=== PATIENT | male | born 1950 | race Hispanic/Latino ===

== ENCOUNTER → 2024-06-25 | Outpatient (CLI) | payer MEDICARE ==
--- NOTE | 2024-07-01 09:42 | HMCSR ---
APPROVED REPORT Laterality: Bilateral Indications R09.89 Doppler Spectral Velocity Analysis PSV / EDVPSV / EDV ECA (R) 193 / cm/sECA (L) 97 / cm/s dICA (R) 80 / 13 cm/sdICA (L) 92 / 21 cm/s Keny (R) 114 / 12 cm/smICA (L) 110 / 46 cm/s pICA (R) 407 / 123 cm/spICA (L) 96 / 32 cm/s dCCA (R) 58 / 12 cm/sdCCA (L) 67 / 13 cm/s mCCA (R) 46 / 6 cm/smCCA (L) 96 / 19 cm/s pCCA (R) 49 / 9 cm/spCCA (L) 94 / 18 cm/s Vert (R) 68 / cm/sVert (L) 35 / cm/s Subl. (R) 234 / cm/sSubl. (L) 182 / cm/s ICA/CCA 7.02ICA/CCA 1.15 Technologist Impression Severe to moderate calcified plaque noted in the right carotid. Bilateral vertebral arteries appear antegrade. CHELLY shows evidence greater than 80% stenosis. LICA appears patent without hemodynamic significance. RECA shows increased velocities. velocities in the Rt. Subclavian artery are suggestive of >50% Stenosis. Conclusion Severe to moderate calcified plaque noted in the right carotid. Bilateral vertebral arteries appear antegrade. CHELLY shows evidence greater than 80% stenosis. LICA appears patent without hemodynamic significance. RECA shows increased velocities. velocities in the Rt. Subclavian artery are suggestive of >50% Stenosis. Conclusion Severe to moderate calcified plaque noted in the right carotid. Bilateral vertebral arteries appear antegrade. CHELLY shows evidence greater than 80% stenosis. LICA appears patent without hemodynamic significance. RECA shows increased velocities. velocities in the Rt. Subclavian artery are suggestive of >50% Stenosis.
== END | disposition home or self-care (01) ==
LOC: SHCH 11:25
PROVIDERS: ATTEND Internal Medicine Cardiovascular Disease
DX: I65.21 Occlusion and stenosis of right carotid artery (principal); R09.89 Other specified symptoms and signs involving the circulatory and respiratory systems
CPT/HCPCS: 93880

== ENCOUNTER → 2024-07-17 | Outpatient (CLI) | payer MEDICARE ==
[~2024-07-17] MED LIST: IOHEXOL 350 MG/ML 100ML INFUS..BTL IV ONE
--- NOTE | 2024-07-17 12:31 | HMCIMG ---
CT ANGIO NECK REASON: OCCLUSION/ STENOSIS COMPARISON: None TECHNIQUE: Axial images are obtained from the aortic arch through the skull base before and during bolus IV contrast, 100 cc Omnipaque 350. 2-D and 3-D reconstruction images were then performed. FINDINGS: Common carotid arteries appear unremarkable to the level of the bifurcation. There is extensive plaque in the right bifurcation. The right internal carotid artery is severely narrowed, 90% or greater. There is a decreased caliber internal carotid artery which extends to the level of the skull base. There is mild plaque in the left bifurcation. There is no anatomic evidence of significant focal narrowing. There is a balanced vertebral artery system, both are patent to the basilar confluence. IMPRESSION: 1. Severe plaque in the right carotid bifurcation, there is severe 90% or greater stenosis of the proximal right internal carotid artery. 2. Mild plaque on the left, no stenosis identified. 3. Balanced vertebral artery system, both are patent to the basilar confluence.
== END | disposition home or self-care (01) ==
LOC: RAH 11:14
PROVIDERS: ATTEND Internal Medicine Cardiovascular Disease
DX: I65.23 Occlusion and stenosis of bilateral carotid arteries (principal)
CPT/HCPCS: 70498; Q9967

== ENCOUNTER → 2024-07-25 | Outpatient (CLI) | payer MEDICARE ==
[2024-07-25] MEDS: REGADENOSON 0.4 MG/5 ML PF SYG IVP ONE (11:16)
--- NOTE | 2024-07-29 13:10 | HMCSR ---
APPROVED REPORT Height: 5 ft 8in Weight: 176 lbs TEST INDICATIONS I71.40 ABNORMAL AORTIC ANEURYSM The imaging protocol used to acquire images was Rest Tc-99m/stress Tc-99m 1 day Consent: The procedure was explained and understood by the patient. Informerd consent was witnessed Jaime SONG RN First, low dose rest was performed then high dose stress. RESTING DATA: The resting ekg shows: NSR Rest SPECT myocardial perfusion imaging was performed in supine position 97 minutes following the int ravenous injection of 11.21 mCi of Tc-99 Sestamibi. Time of rest injection: 08:55: Date: 07/25/2024 Time of rest imagin:32: Date: 07/25/2024 PHARMACOLOGIC STRESS: Pharmacologic stress test was performed by injecting regadenoson 0.4 mg IV push followed by the intra venous injection of 31.5 mCi of Tc-99 Sestamibi. Time of stress injection: 10:56: Date: 07/25/2024 Time of stress imagin:03: Date: 07/25/2024 Heart Rate at time of stress injection: 52 bpm. Gated Stress SPECT was performed 67 minutes after stress injection. The images were gated to evaluate regional wall motion and calculate left ventricular ejection fracti on. STRESS DETAILS Reason for Termination: Infusion complete Stress Symptoms: Dyspnea Max HR Achieved: 80 bpm % of APMHR Achieved: 56 Max Blood Pressure: 114/49 mmHg Stress ECG: NSR LEFT VENTRICLE Size: The left ventricular size is normal. Systolic Function:The left ventricular systolic function is borderline. Wall Motion: Infero-apical hypokinesis. The left ventricular ejection fraction was calculated to be 52%.TID = . LV PERFUSION Fixed infero-apical defects. No reversible defects. Conclusion The left ventricular size is normal. The left ventricular systolic function is borderline. Infero-apical hypokinesis. Fixed infero-apical defects. No reversible defects. The left ventricular ejection fraction was calculated to be 52%.
== END | disposition home or self-care (01) ==
LOC: SHCH 08:39
PROVIDERS: ATTEND Internal Medicine Cardiovascular Disease
DX: R06.00 Dyspnea, unspecified (principal); I71.40 Abdominal aortic aneurysm, without rupture, unspecified; R10.9 Unspecified abdominal pain; I10 Essential (primary) hypertension; Z79.899 Other long term (current) drug therapy
CPT/HCPCS: 78452; 93017; J2785; A9500 ×2

== ENCOUNTER 2024-08-05 06:45 | Day surgery (SDC) | payer MEDICARE ==
[2024-08-02 11:57] LABS: BASOPHILS # (AUTO) 0.03 K/uL (0.00-0.20); BASOPHILS % (AUTO) 0.5 % (0.0-5.0); EOSINOPHILS % (AUTO) 1.8 % (0.0-8.0); HEMATOCRIT 34.2 % (42-54); IMMATURE GRANULOCYTE ABSOLUTE 0.04 K/uL (0-1); LYMPHOCYTES # (AUTO) 0.9 K/uL (1.0-4.8); LYMPHOCYTES % (AUTO) 15.3 % (21.0-51.0); MEAN CORPUSCULAR HEMOGLOBIN 26.7 pg (27.0-33.0); MEAN CORPUSCULAR HGB CONC 31.9 g/dL (32.0-36.0); MEAN CORPUSCULAR VOLUME 83.6 fL (79-99); MONOCYTES # (AUTO) 0.4 K/uL (0.1-1.0); MONOCYTES % (AUTO) 7.3 % (3.0-13.0); NEUTROPHILS # (AUTO) 4.2 K/uL (1.8-7.7); NEUTROPHILS % (AUTO) 74.4 % (40.0-77.0); PLATELET COUNT (AUTO) 253 K/uL (130-400); RED BLOOD CELL COUNT(AUTO) 4.09 MIL/uL (4.50-6.20); RED CELL DISTRIBUTION WIDTH 15.9 % (11.0-15.5); WHITE BLOOD COUNT (AUTO) 5.6 K/uL (4.8-10.8)
--- NOTE | 2024-08-02 11:57 | EKG ---
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
[2024-08-02 12:01] VITALS: BP 140/62; PULSE 64; RESP 16; TEMP 97.3
[2024-08-02 12:01] LABS: APPEARANCE,URINE CLOUDY (CLEAR); BILIRUBIN,URINE NEGATIVE (NEGATIVE); COLOR,URINE YELLOW (YELLOW); GLUCOSE, URINE (UA) NEGATIVE (NEGATIVE); KETONES,URINE NEGATIVE (NEGATIVE); LEUKOCYTE ESTERASE ,URINE NEGATIVE Leu/uL (NEGATIVE); NITRATE,URINE NEGATIVE (NEGATIVE); OCCULT BLOOD,URINE NEGATIVE (NEGATIVE); PROTEIN,URINE NEGATIVE (NEGATIVE); UROBILINOGEN,URINE 0.2 mg/dL (0.2-1.0)
[2024-08-02 12:02] LABS: ADD UA MICROSCOPIC YES
[2024-08-02 12:04] LABS: BACTERIA,URINE RARE /HPF (None Seen); MUCUS,URINE RARE LPF (None Seen); RBC,URINE 0-1 /HPF (0-1)
[2024-08-02 12:08] LABS: INR 1.03 (0.85-1.15); PROTHROMBIN TIME 10.9 SEC (9.6-11.6)
[2024-08-02 12:09] LABS: CREATININE 0.5 mg/dL (0.5-1.3); PARTIAL THROMBOPLASTIN TIME 28.8 SEC (26.3-35.5); POTASSIUM 3.5 mmol/L (3.5-5.1)
--- NOTE | 2024-08-02 12:46 | HMCIMG ---
PORTABLE CHEST RADIOGRAPH INDICATION: PREOP COMPARISON: None FINDINGS: Heart size is normal. Mild calcific plaque is present along the aortic arch green. The pulmonary vascularity and brook appear normal. No abnormal pulmonary parenchymal opacity or consolidation identified. No significant pleural effusion noted. No pneumothorax detected. IMPRESSION: No radiographic evidence for any acute cardiopulmonary process.
[2024-08-02 12:53] LABS: B-TYPE NATRIURETIC PEPTIDE 48 pg/mL (0-100)
--- NOTE | 2024-08-02 15:32 | NUR ---
REPORT REPORTED NA, CHLORIDE AND H&H TO GIAN GRIFFITH NP. OK TO PROCEED
[~2024-08-05] VITALS: Ht 182.9 cm; Wt 81.2 kg
[2024-08-05] VITALS (11 sets, daily range): BP systolic 95–137; BP diastolic 47–63; PULSE 54–65; RESP 14–16; TEMP 97–206.6
[~2024-08-05 06:45] MED LIST changes: +AMLO-257 PO; +CLOP75TA32 PO; +CYAN-52 PO; -IOHEXOL 350 MG/ML 100ML INFUS..BTL IV ONE; +LISI20TA24 PO; +VITAD50000 PO; +ZINC220T4 PO; +ZOLP10TA2 PO
[2024-08-05] MEDS ORDERED: HEParin 10,000 UNIT/10ML (1,000 UNIT/ML) VIAL ONE (08:44)
[2024-08-05] MEDS ORDERED: IOHEXOL 350 MG/ML 100ML INFUS..BTL IV ONE (08:44)
[2024-08-05] MEDS ORDERED: LIDOCAINE HCL 400MG/20ML VIAL ONE (08:44)
[2024-08-05] MEDS ORDERED: SODIUM BICARB 50MEQ 50ML VIAL 50 ML ONE (08:44)
[2024-08-05] MEDS ORDERED: MIDAZOLAM HCL 1 MG/ML 2ML VIAL ONE ×2 (08:44→10:08)
[2024-08-05] MEDS ORDERED: NITROGLYCERIN 50MG VIAL ONE (08:45)
[2024-08-05] MEDS ORDERED: HEParin-NS 1,000 UNIT/500 ML 1,000 ML IV ONE (08:45)
[2024-08-05] MEDS ORDERED: FENTanyl CITRate PF 50 MCG/1 ML 2ML VIAL ONE (09:25)
[2024-08-05] MEDS ORDERED: IOHEXOL-350 50ML VIAL IV ONE (09:59)
[2024-08-05] MEDS ORDERED: 0.9%NACL 1000ML 1,000 ML IV SCH (10:30)
--- NOTE | 2024-08-05 11:14 | CCATH ---
PROCEDURES: * Left heart catheterization. * Selective right and left coronary arteriogram. * Selective right and left carotid angiogram. * Placement of a catheter in the abdominal aorta. * Abdominal aortogram. * Conscious sedation for 60 minutes. INDICATIONS: * History of coronary artery disease. * Critical carotid artery stenosis. * Abdominal aortic aneurysm, saccular. COMPLICATIONS: None. TOTAL CONTRAST: 100 mL. Ventriculography was deferred to preserve contrast. The patient will have a 2D echocardiogram. DESCRIPTION OF PROCEDURE: The patient was taken to the cardiac catheterization lab after the appropriate operative consents were signed. After conscious sedation was administered, the right common femoral artery region was accessed, was infiltrated with 2% Xylocaine. Right common femoral artery was accessed and a 0.035 wire was advanced in retrograde fashion. We had significant problems advancing the wire because of iliac occlusion and stenosis, we were then able to utilize a Glidewire that allowed us to advance the wire into the descending thoracic aorta. We then exchanged with a 6 x 45 sheath that was placed into the descending thoracic aorta, bypassing all the areas of stenosis. At this point, fluoroscopy revealed a heavily calcified abdominal aorta with a saccular abdominal aortic aneurysm extending towards the right side of the body. The patient had heavily calcified iliac arteries. We were then able to advance FL4 6-[place] catheter, which was selectively engaged in the ostium of the left main. The left main was imaged in multiplane. This was a calcified vessel that was moderately sized and had 30% distal tapering. It bifurcated into an LAD and circumflex. LAD was a large vessel that was calcified and had a 50% mid to distal lesion. It gave rise to several diagonals. The first diagonal was a large vessel that had 20% stenotic lesion. Circumflex was a moderately sized vessel that gives rise to 2 small OMs and an ongoing distal circumflex with a moderately sized OM and system was free of disease, but was calcified. The right coronary artery was a large vessel that was calcified and gave rise to an acute marginal branch PDA and three other PLVB branches. The PDA was a small vessel that had a 90% lesion in its mid body. The rest of the vessels were normal and the PLVB was a larger vessel. The catheter was then withdrawn and placed in the left ventricular cavity. Left ventricular end-diastolic pressure measurement was obtained. Ventriculography was deferred to conserve contrast. Pullback revealed no evidence of aortic stenosis. The right coronary catheter was then selectively engaged in the right common carotid artery. This was imaged in multiplane. This revealed heavily calcified lesion in the ostium of the right internal carotid artery with slow antegrade flow suggestive of a string sign almost. The catheter was then engaged in the left common carotid artery which was patent and large and normal. There was evidence of intracerebral flow from the left carotid system and the right carotid system with the right anterior and middle cerebral arteries being filled via left to right collaterals confirming the critical nature of the right internal carotid artery stenotic lesion. At this point, the catheter was withdrawn and a pigtail Omniflush catheter with markers was advanced to position into the abdominal aorta above the level of the renal arteries. An abdominal aortogram was performed in AP projection with digital acquisition. This identified two right renal arteries and normal left renal artery. The aorta was heavily calcified and there was evidence of a saccular aneurysm that had mural thrombus extending to the right side of the aorta. The common iliac arteries were ectatic and heavily calcified. Both of them had 80% stenotic lesions. The patient had patent internal and external iliac arteries and the femorals were calcified. At this point, the procedure was completed. Vascade was utilized with good hemostasis. The patient tolerated the procedure well and left the cardiac catheterization lab in stable condition. FINAL IMPRESSION: * Branch coronary artery disease with a mid to distal LAD 50% stenotic lesion. * Critical right internal carotid artery stenosis. * Saccular calcified infrarenal abdominal aortic aneurysm with bilateral severe common iliac artery stenoses. PLAN: We will have to stage the procedure on this patient. I think the most appropriate approach is to address the right carotid lesion since it is critical. The patient will then be managed with endoluminal graft placement in the infrarenal abdominal aorta with bilateral common iliac artery angioplasty. The patient may require surgical cutdown given the degree of calcification is iliac artery; however, we will proceed with an attempted percutaneous management. TID: [id number] RECEIPT: [id number]
--- NOTE | 2024-08-05 13:22 | NUR ---
REPORT GIVEN TO JASON NAVA
--- NOTE | 2024-08-05 21:31 | HMCSR ---
APPROVED REPORT EXAM: Limited two-dimensional echocardiogram INDICATION ICD: Assess Left ventricular function Left Ventricle Left ventricular cavity size is normal. Mild apical and apical septal hypokinesia suggested in some p rojections. There is normal left ventricular wall thickness. Mildly thickened Sigmoid septum is prese nt. LVEF is 55-60%. Right Ventricle The right ventricle is normal size. The right ventricular systolic function is normal. Atria The left atrium size is normal. The right atrium is mildly dilated. Aortic Valve Nodular thickening of aortic leaflets, cannot exclude presence of TAVR on difficult imaging. Mitral Valve Mitral valve leaflets open well. Mild posterior annular calcification noted. Tricuspid Valve The tricuspid valve is normal in structure and function. Pulmonic Valve Pulmonic valve is not assessed. Great Vessels The aortic root is normal appears normal in size. Pericardium No pericardial effusion. Other Information Quality : Adequate Conclusion LVEF is 55-60%. Mild apical and apical septal hypokinesia suggested in some projections. Nodular thickening of aortic leaflets, cannot exclude presence of TAVR on difficult imaging.
== END 2024-08-05 16:14 | disposition home or self-care (01) ==
LOC: DAH 06:45 → EDSTATUS 09:00 → DAH 16:14
PROVIDERS: ATTEND Internal Medicine Cardiovascular Disease
DX: I25.10 Atherosclerotic heart disease of native coronary artery without angina pectoris (principal); I65.21 Occlusion and stenosis of right carotid artery; I71.43 Infrarenal abdominal aortic aneurysm, without rupture; I25.84 Coronary atherosclerosis due to calcified coronary lesion; I10 Essential (primary) hypertension; I73.9 Peripheral vascular disease, unspecified; E78.5 Hyperlipidemia, unspecified; E66.9 Obesity, unspecified; I74.5 Embolism and thrombosis of iliac artery; Z79.899 Other long term (current) drug therapy; Z98.890 Other specified postprocedural states; Z88.8 Allergy status to other drugs, medicaments and biological substances; Z87.891 Personal history of nicotine dependence; Z98.49 Cataract extraction status, unspecified eye; Z68.25 Body mass index [BMI] 25.0-25.9, adult
CPT/HCPCS: 80048; 83880; 85025; 85610; 85730; 81001; 36415; 71045; 93005; 93458; 75625; 75716; 36223; 93308; Q9965; C1769; C1894; C1893; C1760; J3010; J3490 ×3; J2250 ×2; J1644; Q9967; A4215; A4222; A4221; A4663; A4216; A4606; A4223 ×3; 96360; 96361; 99156; 99157

== ENCOUNTER → 2024-09-27 | Outpatient (CLI) | payer MEDICARE ==
[~2024-09-27] VITALS: Ht 182.9 cm; Wt 79.9 kg
[~2024-09-27] MED LIST changes: +ASPI-1005 PO; +ATOR40TA71 PO; +FERS325 PO; +METO25TA6 PO; +ZOLP-685 PO; -ZOLP10TA2 PO
--- NOTE | 2024-09-27 08:29 | EKG ---
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 : 1950 Requested By: Micah SOUZA Order Number: [id number] Reading MD: Krzysztof De La Torre Measurements Intervals [place] Rate: 54 P: 28 MS: 278 QRS: 110 QRSD: 134 T: 31 QT: 476 QTc: 451 Interpretive Statements Sinus bradycardia with 1st degree AV block Possible Left atrial enlargement Nonspecific intraventricular block Compared to ECG 08/09/2024 10:21:13 Sinus rhythm no longer present Intraventricular conduction delay no longer present Left ventricular hypertrophy no longer present Electronically Signed On 09-27-2024 15:52:12 CDT by Krzysztof De La Torre Please click the below link to view image of tracing.
[2024-09-27 08:48] LABS: BASOPHILS # (AUTO) 0.04 K/uL (0.00-0.20); BASOPHILS % (AUTO) 0.9 % (0.0-5.0); EOSINOPHILS # (AUTO) 0.16 K/uL (0.00-0.70); EOSINOPHILS % (AUTO) 3.6 % (0.0-8.0); HEMATOCRIT 32.5 % (42-54); IMMATURE GRANULOCYTE ABSOLUTE 0.03 K/uL (0-1); LYMPHOCYTES # (AUTO) 1.1 K/uL (1.0-4.8); LYMPHOCYTES % (AUTO) 24.5 % (21.0-51.0); MEAN CORPUSCULAR HEMOGLOBIN 25.1 pg (27.0-33.0); MEAN CORPUSCULAR HGB CONC 31.4 g/dL (32.0-36.0); MONOCYTES # (AUTO) 0.5 K/uL (0.1-1.0); MONOCYTES % (AUTO) 10.9 % (3.0-13.0); NEUTROPHILS # (AUTO) 2.6 K/uL (1.8-7.7); NEUTROPHILS % (AUTO) 59.4 % (40.0-77.0); PLATELET COUNT (AUTO) 265 K/uL (130-400); RED BLOOD CELL COUNT(AUTO) 4.06 MIL/uL (4.50-6.20); RED CELL DISTRIBUTION WIDTH 17.2 % (11.0-15.5); WHITE BLOOD COUNT (AUTO) 4.4 K/uL (4.8-10.8)
[2024-09-27 08:52] LABS: APPEARANCE,URINE CLEAR (CLEAR); BILIRUBIN,URINE NEGATIVE (NEGATIVE); COLOR,URINE LIGHT-YELLOW (YELLOW); GLUCOSE, URINE (UA) NEGATIVE (NEGATIVE); KETONES,URINE NEGATIVE (NEGATIVE); LEUKOCYTE ESTERASE ,URINE NEGATIVE Leu/uL (NEGATIVE); NITRATE,URINE NEGATIVE (NEGATIVE); OCCULT BLOOD,URINE NEGATIVE (NEGATIVE); PROTEIN,URINE NEGATIVE (NEGATIVE); UROBILINOGEN,URINE 0.2 mg/dL (0.2-1.0)
[2024-09-27 08:54] LABS: ADD UA MICROSCOPIC NO
[2024-09-27 08:56] LABS: CREATININE 0.6 mg/dL (0.5-1.3); POTASSIUM 3.6 mmol/L (3.5-5.1)
[2024-09-27 08:58] LABS: INR 1.03 (0.85-1.15); PROTHROMBIN TIME 10.9 SEC (9.6-11.6)
[2024-09-27 09:05] VITALS: BP 153/79; PULSE 65; RESP 16; TEMP 97.2
--- NOTE | 2024-09-27 09:24 | HMCIMG ---
CHEST 1VW HISTORY: Preop COMPARISON: 08/09/2024 FINDINGS: A frontal projection of the chest was obtained. No acute pulmonary infiltrates is seen. The heart is normal in size. Degenerative changes are seen aortic calcifications are seen. IMPRESSION: 1. No acute pulmonary infiltrate is seen.
--- NOTE | 2024-09-27 11:54 | NUR ---
REPORT REPORTED CBC AND BMP TO GIAN GRIFFITH NP. OK TO PROCEED
== END | disposition home or self-care (01) ==
LOC: DAH 07:54 → EDSTATUS 09-30 08:00
PROVIDERS: ATTEND Internal Medicine Cardiovascular Disease
DX: Z01.818 Encounter for other preprocedural examination (principal); I44.0 Atrioventricular block, first degree; R00.1 Bradycardia, unspecified; I72.3 Aneurysm of iliac artery; I70.0 Atherosclerosis of aorta; M47.814 Spondylosis without myelopathy or radiculopathy, thoracic region
CPT/HCPCS: 36415; 71045; 80048; 81003; 85025; 85610; 85730; 86850; 86900; 86901; 86923; 93005

== ENCOUNTER 2024-09-29 19:29 | Inpatient (IN) | payer MEDICARE ==
[2024-09-29] VITALS (8 sets, daily range): BP systolic 110–143; BP diastolic 50–81; PULSE 76–85; RESP 13–20; TEMP 98.3–98.6; O2SAT 96
[~2024-09-29] VITALS: Ht 182.9 cm; Wt 83.6 kg
[~2024-09-29 19:29] MED LIST changes: -ASPI-1005 PO; -ATOR40TA71 PO; -FERS325 PO; -METO25TA6 PO
[2024-09-29] MEDS ORDERED: IpraTROPium 0.5 MG/2.5 ML INH IH PRN (21:00)
[2024-09-29] MEDS ORDERED: acetaMINOPHEN 650 MG SUPPOSITORY RC PRN (21:00)
[2024-09-29] MEDS ORDERED: doCUSate SODIUM 100 MG CAP PO PRN (21:00)
[2024-09-29] MEDS ORDERED: ondanSETRON 4MG INJ IVP PRN (21:00)
[2024-09-29] MEDS ORDERED: LAbetaLOL 20MG SYG IV PRN (21:00)
--- NOTE | 2024-09-29 21:14 | HP ---
[facility] HISTORY AND PHYSICAL Date of Service: September 29, 2024 Time of Service: 21:14 Admitting/supervising physicians: Dr. Obey Chang and Dr. Bhakta HISTORY OF PRESENT ILLNESS: Mr. Smalls is a 74-year-old male was transferred from [facility] and direct admitted to [facility] by Dr. Chu, Cardiology with the diagnosis of syncope and AAA. The plan for the transfer is AAA repair tomorrow at [facility] where the Cardiothoracic surgeon and his senior national account manager are located. The patient has a history of HTN, hyperlipoproteinemia, infrarenal abdominal aortic aneurysm measuring 5.3 cm (AAA dx since [address] Johnson f/u on it, per patient), CAD s/p cardiac stents, normal LV systolic function by cardiac catheterization on January 2024, history of heavy alcoholism and tobacco use (stopped in 2011), history of PVD, severe right internal carotid artery stenosis (90% or greater stenosis) as per neck CT on May 2024. The patient underwent right carotid stent angiography and right subclavian artery exposure and closure procedure (right TCA ER and shockwave vascular lithotripsy) on 08/13/2024 for stenosis. Per [facility] chart review: The patient was taken to [facility] ER by EMS for evaluation of accidental fall with syncope that happened prior to arrival. The patient reported he was sitting down at a local restaurant when he got up and reported falling to the ground. The patient was assisted to the ground and denied any complaints of headache or neck trauma. The patient reported he felt dizzy after falling down. Patient was noted to have a low blood pressure by EMS and was given 500 mL bolus of saline. The patient denied abdominal pain and chest pain on arrival to ED patient was re ported to be unresponsive for a few seconds as per EMS. The patient reported right elbow pain s/p the fall. CTs done at [facility]: CTA abdomen and pelvis with contrast: 1. Saccular infrarenal abdominal aortic aneurysm measuring up to 5.1 x 5.1 cm in cross-sectional diameter and about 4.8 cm in length. There is prominent mural thrombus noted. No leakage or rupture is identified. 2. The thoracic and abdominal aorta is tortuous and calcified. 3. Vascular calcifications involving the origins of the celiac trunk, SMA and renal arteries without evidence of severe stenosis. 4. Extensive vascular nadia cifications throughout the iliac and femoral arteries. 5. Bilateral basilar dense atelectasis. 6. Coronary artery disease and cardiomegaly. 7. The left lateral upper abdominal and lower chest wall demonstrates a 7.[address] angio chest: Arthrosclerotic calcification of the thoracic aorta without aneurysmal dilatation or dissection. New 2. Cardiomegaly and CAD. 3. Mild upper mediastinal lymphadenopathy. 4. Extensive interstitial infiltrates throughout both lungs with superimposed pulmonary fibrosis and sensory labetalol emphysema. No dense consult cessation is identified. 5. There is thoracic spondylosis. CT brain without contrast: No acute intracranial abnormalities. Generalized atrophy with chronic periventricular deep white matter ischemic changes. EKG: Sinus rhythm, heart rate 61, prolonged [place] interval, probable left atrial enlargement, left BBB. Per chart review the patient was admitted on 08/13/2024 at [facility] s/p right carotid stent angiogram and right subclavian artery exposure and closure procedure [right TCAR and shockwave vascular lithotripsy] today for stenosis. The patient was discharged on 08/15/2024 by the [facility] team. The patient was assessed by me in room 215 upon arrival to [facility]. The patient was sitting in recliner, breathing was even, unlabored, in no distress. Patient re questing pain medication for bilateral lower extremity and elbow pain. Patient already requesting sleeping medication. I informed the patient of plan of care. The patient verbalized understanding and is in agreement with the plan. Plan and assessment are listed below. REVIEW OF SYSTEMS 12-point ROS reviewed with the patient. All pertinent positives mentioned above. Otherwise negative, noncontributory, non-pertinent. PAST MEDICAL HISTORY: As mentioned above PAST SURGICAL HISTORY: Cataract, cosmetic blepharoplasty PAST SOCIAL HISTORY: History of alcohol and tobacco use [stopped in 2011] Coded Allergies: No Known Drug Allergies (Unverified Allergy, Unknown, 08/02/24) PHYSICAL EXAM GENERAL APPEARANCE: The patient is awake, alert, and oriented, in no acute cardiopulmonary distress. NEUROLOGICAL: Cranial nerves II-XII grossly intact. Motor is 5/5 in bilateral upper and lower extremities proximal to distal. No sensory deficits. HEENT: Face is symmetric. Pupils are equal and reactive. Extraocular movements are intact. NECK: Supple. No JVD. No thyromegaly. No submental, submandibular, pre- /postauricular, occipital or supraclavicular lymphadenopathy. CHEST: Normal chest expansion. No Telemetry. LUNGS: Absence of any rales, rhonchi or any wheezing. CARDIOVASCULAR: Regular. S1 and S2 normal. No appreciable rubs, murmurs or gallops. ABDOMEN: Soft, nontender, and nondistended. There is no rebound, voluntary guarding, or rigidity. : Deferred. No Arango. EXTREMITIES: Non-edematous and not cyanotic. No clubbing. Good capillary refill. SKIN: No skin breakdown. LABS: Current Medications Medications (Trade) Dose Ordered Sig/Linda Route PRN Reason Start Time Stop Time Status Last Admin Dose Admin Acetaminophen (TYLenol 325MG TAB) 650 mg Q6H PRN PO FEVER/MILD PAIN LEVEL 1-3 09/29/24 21:00 10/29/24 20:59 Acetaminophen (TYLenol 650MG SUPPOSITORY) 650 mg Q6H PRN RC FEVER / MILD PAIN 1-3 IF NPO 09/29/24 21:00 10/29/24 20:59 Docusate Sodium (COLace 100MG CAP) 100 mg BID PRN PO c 09/29/24 21:00 10/29/24 20:59 Ipratropium Hopkins (AtrovENT UD) 0.5 mg [id number] PRN IH SHORTNESS OF BREATH/WHEEZING 09/29/24 21:00 10/29/24 20:59 Labetalol HCl (TRANdate 20MG SYG) 10 mg Q2H PRN IV SBP GREATER THAN 160 09/29/24 21:00 10/29/24 20:59 Lactulose (Constulose 20gm/ 30ml Udcup) 20 gm Q6H PRN PO CONSTIPATION 09/29/24 21:00 10/29/24 20:59 Ondansetron HCl (zoFRAN 4MG INJ) 4 mg Q6H PRN IVP NAUSEA/VOMITING 09/29/24 21:00 10/29/24 20:59 DIAGNOSTICS / RADIOLOGY: [ ] ASSESSMENT: Syncope episode, POA Hypotensive & bradycardia episode, POA Saccular infrarenal abdominal aortic aneurysm measuring up to 5.1 x 5.1 cm in cross-sectional diameter and about 4.8 cm in length, per CT on 09/29/2024 HX of Infrarenal abdominal aortic aneurysm measuring 5.3 cm, per cardiology report on 08/05/24 HX of AAA dx since [address] Johnson f/u on it, per patient Severe right internal carotid artery stenosis [90% or greater stenosis] as per neck CTA on May 2024 s/p right TCAR and shockwave vascular lithotripsy on 08/13/2024 Prominent mural thrombus, per CT on 09/29/2024. Thoracic and abdominal aorta is tortuous and calcified, per CT 09/29/2024 Vascular calcifications involving the origins of the celiac trunk, SMA and renal arteries without evidence of severe stenosis, per CT 09/29/2024 Extensive vascular calcifications throughout the iliac and femoral arteries, per CT 09/29/2024 Bilateral basilar dense atelectasis, per CT on 09/29/2024 Coronary artery disease and cardiomegaly. 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 Arthrosclerotic calcification of the thoracic aorta without aneurysmal dilatation or dissection, per CT 09/29/2024 Mild upper mediastinal lymphadenopathy, per CT 09/29/2024 Extensive interstitial infiltrates throughout both lungs with superimposed pulmonary fibrosis and sensory labetalol emphysema, per CT 09/29/2024 Thoracic spondylosis. Anemia of chronic disease, POA Electrolyte derangement (hyponatremia, hypokalemia, hypochloremia, hypomag nesemia) Chronic hyponatremia, POA Chronic problem list: Hypertension, Hyperlipoproteinemia History of nonobstructive CAD, as per cardiac catheterization on January 2024 History of heavy alcohol and tobacco use (quit in 2011) History of peripheral vascular disease with left lower extremity intervention on March 2023 History of statin intolerance Chronic Bradycardia Plan: -Patient was transferred from [facility] to [facility] and directly bed into ICU 215 with continuous cardiac monitoring and pulse oximetry monitoring. -Cardiology was consulted by RN on patient arrival to ICU who will see patient in the a.m.. -CV surgeon consult in am. -NPO after midnight. -Continue amlodipine, hydralazine, and Ambien as ordered by Dr. Chu, senior national account manager. -p.r.n. medications for: Pain management, nausea, vomiting, constipation. -Obtain carotid Doppler. -Troponin levels and EKG series. -Oxygen supplement as needed to maintain oxygen levels equal to or greater than 92% -Vital signs per ICU. -Reconcile home medications once available. -Glucometer checks q.6 hours with insulin regular sliding scale. -AM labs: CBC, BNP, Mag, phos, TSH, A1c. -Monitor renal and liver function. -Monitor electrolytes and treat accordingly. -DVT and GI prophylaxis: SCDs and Protonix. ADVANCED CARE PLANNING 1. Which of the following were discussed? Hospice Care - No Therapeutic options - Yes Advance Directives - Yes Other discussions - 2. Discussed with who? The patient 3. Voluntary nature of this service was explained to the patient? Yes 4. Amount of time spent - __ Over 35 minutes 5. Reviewed by Physician? (if this service was performed by NPP) Yes ATTESTATION BY PHYSICIAN I have seen and examined the patient. I reviewed the documentation, medical decision making, and treatment plan as noted by the mid-level provider above. I agree with the findings and plan of care. [facility] September 29, 2024 21:14
[2024-09-29] MEDS ORDERED: hydrALAZine 20MG/ML VIAL IV PRN (21:30)
[2024-09-29] MEDS: acetaMINOPHEN 325 MG TAB PO PRN (21:35)
[2024-09-29 21:37] LABS: HEMATOCRIT 31.2 % (42-54); MEAN CORPUSCULAR HEMOGLOBIN 25.3 pg (27.0-33.0); MEAN CORPUSCULAR HGB CONC 32.1 g/dL (32.0-36.0); MEAN CORPUSCULAR VOLUME 78.8 fL (79-99); RED BLOOD CELL COUNT(AUTO) 3.96 MIL/uL (4.50-6.20); RED CELL DISTRIBUTION WIDTH 17.2 % (11.0-15.5); WHITE BLOOD COUNT (AUTO) 6.6 K/uL (4.8-10.8)
[2024-09-29 21:50] LABS: CREATININE 0.7 mg/dL (0.5-1.3); POTASSIUM 3.2 mmol/L (3.5-5.1)
[2024-09-29 21:54] LABS: ALBUMIN 3.6 g/dL (3.5-5.0); BILIRUBIN,TOTAL 0.2 mg/dL (0.2-1.0); MAGNESIUM 1.7 mg/dL (1.80-2.40)
[2024-09-29] MEDS ORDERED: PoTASSium chl 10% ELIXIR 20MEQ 20 MEQ/15 ML UDCUP PO PRN (22:00)
[2024-09-29] MEDS ORDERED: PoTASSium chloRIDE 10MEQ/100ML 100 ML IV PRN (22:00)
[2024-09-29] MEDS: MAGNESIUM 2GM PREMIX 50ML 50 ML IV PRN (22:05)
[2024-09-29] MEDS: PoTASSium chloRIDE 20MEQ ER 20 MEQ ERTAB PO PRN (22:05)
[2024-09-29] MEDS: PoTASSium chloRIDE 20MEQ ER 20 MEQ ERTAB PO ONE (22:19)
[2024-09-29] MEDS: MAGNESIUM 2GM PREMIX 50ML 50 ML IV ONE (22:19)
[2024-09-29] MEDS ORDERED: PoTASSium chloRIDE 20MEQ/100ML 100 ML IV PRN (22:30)
[2024-09-29] MEDS ORDERED: DEXTROSE 50%-WATER 50 ML DISP.SYRIN IV PRN (22:30)
[2024-09-29] MEDS ORDERED: GLUCAGON 1MG KIT 1 MG ML IM PRN (22:30)
[2024-09-29] MEDS ORDERED: GABApentin 100 MG CAPSULE PO SCH (22:30)
[2024-09-29] MEDS ORDERED: MAGNESIUM 2GM PREMIX 50ML 50 ML IV PRN (22:30)
[2024-09-29] MEDS ORDERED: FAMOTIDINE 20MG VIAL IV ONE ×2 (22:45→23:40)
[2024-09-29] MEDS: FAMOTIDINE 20MG VIAL IV SCH (23:00)
[2024-09-29] MEDS: GABApentin 100 MG CAPSULE PO ONE (23:00)
[2024-09-29] MEDS ORDERED: GABApentin 100 MG CAPSULE PO STA (23:35)
[2024-09-30] VITALS (100 sets, daily range): BP systolic 94–190; BP diastolic 32–80; PULSE 52–97; RESP 10–21; TEMP 98.2–99.5; O2SAT 95–98
[2024-09-30 00:39] LABS: SARS-CoV-2, RNA, NAAT NEGATIVE SARS CoV-2 (NEGATIVE)
[2024-09-30 00:47] LABS: INFLUENZA TYPE A Negative For Type A (NEGATIVE); INFLUENZA TYPE B Negative For Type B (NEGATIVE)
[2024-09-30] MEDS ORDERED: GABApentin 100 MG CAPSULE PO STA (01:04)
[2024-09-30] MEDS ORDERED: FAMOTIDINE 20MG VIAL IV ONE (01:30)
[2024-09-30 03:51] LABS: ADD UA MICROSCOPIC YES; APPEARANCE,URINE CLOUDY (CLEAR); BILIRUBIN,URINE NEGATIVE (NEGATIVE); COLOR,URINE LIGHT-YELLOW (YELLOW); GLUCOSE, URINE (UA) NEGATIVE (NEGATIVE); KETONES,URINE NEGATIVE (NEGATIVE); LEUKOCYTE ESTERASE ,URINE NEGATIVE Leu/uL (NEGATIVE); NITRATE,URINE NEGATIVE (NEGATIVE); OCCULT BLOOD,URINE NEGATIVE (NEGATIVE); PROTEIN,URINE NEGATIVE (NEGATIVE); UROBILINOGEN,URINE 0.2 mg/dL (0.2-1.0)
[2024-09-30 03:54] LABS: MUCUS,URINE RARE LPF (None Seen)
[2024-09-30 03:56] LABS: AMPHET/METH SCREEN,URINE NEGATIVE (NEGATIVE); BARBITURATE SCREEN, URINE NEGATIVE (NEGATIVE); BENZODIAZEPINES SCREEN,URINE NEGATIVE (NEGATIVE); CANNABINOID SCREEN,URINE POSITIVE (NEGATIVE); COCAINE SCREEN,URINE NEGATIVE (NEGATIVE); OPIATE SCREEN,URINE NEGATIVE (NEGATIVE); PHENCYCLIDINE SCREEN,URINE NEGATIVE (NEGATIVE)
[2024-09-30 04:52] LABS: HEMATOCRIT 31.3 % (42-54); MEAN CORPUSCULAR HEMOGLOBIN 25.4 pg (27.0-33.0); MEAN CORPUSCULAR HGB CONC 31.6 g/dL (32.0-36.0); MEAN CORPUSCULAR VOLUME 80.3 fL (79-99); RED BLOOD CELL COUNT(AUTO) 3.9 MIL/uL (4.50-6.20); RED CELL DISTRIBUTION WIDTH 17.3 % (11.0-15.5)
[2024-09-30 05:29] LABS: CREATININE 0.5 mg/dL (0.5-1.3); MAGNESIUM 2.1 mg/dL (1.80-2.40); PHOSPHORUS 3.5 mg/dL (2.5-4.9); POTASSIUM 3.8 mmol/L (3.5-5.1); THYROID STIMULATING HORMONE 2.12 uIU/mL (0.36-3.74)
[2024-09-30 06:00] LABS: INR 1.01 (0.85-1.15); PROTHROMBIN TIME 10.7 SEC (9.6-11.6)
[2024-09-30] MEDS ORDERED: ATOR40TA71 PO (06:10)
[2024-09-30] MEDS ORDERED: ASPI-1005 PO (06:10)
[2024-09-30] MEDS ORDERED: LIDOCAINE HCL 400MG/20ML VIAL ONE (06:48)
[2024-09-30] MEDS ORDERED: VANCOMYCIN 1G/250ML KIT 0 ML IV ONE (06:48)
[2024-09-30] MEDS ORDERED: SODIUM BICARB 50MEQ 50ML VIAL 50 ML ONE (06:48)
[2024-09-30] MEDS ORDERED: HEParin 10,000 UNIT/10ML (1,000 UNIT/ML) VIAL ONE ×2 (06:49→08:45)
[2024-09-30] MEDS ORDERED: HEParin-NS 1,000 UNIT/500 ML 1,000 ML IV ONE (06:49)
[2024-09-30] MEDS ORDERED: IOHEXOL 350 MG/ML 100ML INFUS..BTL IV ONE ×2 (06:50→07:58)
--- NOTE | 2024-09-30 06:55 | NUR ---
patient went to surgery in stable condition. no distress noted. denies pain or other discomfort.
[2024-09-30] MEDS ORDERED: phenylEPHRINE HCL 10 MG/ML 1ML VIAL IV ONE (07:05)
[2024-09-30] MEDS ORDERED: rocuRONium bROMide 10MG/1ML 5ML VL ONE ×2 (07:05→08:00)
[2024-09-30] MEDS ORDERED: ondanSETRON 4MG INJ ONE (07:05)
[2024-09-30] MEDS ORDERED: proPOFol 10 MG/ML 20ML VIAL IV ONE ×2 (07:05→12:16)
[2024-09-30] MEDS ORDERED: FENTanyl CITRate PF 50 MCG/1 ML 2ML VIAL ONE (07:06)
--- NOTE | 2024-09-30 07:15 | PN ---
PROBLEM LIST: * Near syncope in the setting of hypotension and bradycardia, resolved. * Secular infrarenal abdominal aortic aneurysm, measuring 5.[address] scan in 07/2024. * Severe right internal carotid artery stenosis greater than 90% by coronary CTA in 05/2024, status post right TCAR with concomitant shockwave lithotripsy, 08/13/2024. * Vascular calcification involving the origin of the celiac trunk and SMA, as well as the renal arteries without evidence of severe stenosis by CT scan, 09/2024. * Extensive vascular calcification with severe bilateral common iliac artery stenoses and femoral artery stenosis by CT angiogram. * Bilateral dense vessel atelectasis by CT scan, 09/2024. * History of nonobstructive coronary artery disease by cardiac catheterization in 2023. * Findings of a hematoma by CAT scan, 09/2024. * Mid and upper mediastinal lymphadenopathy by CAT scan, 09/29/2024. * Interstitial infiltrates throughout both lungs and superimposed pulmonary fibrotic changes with emphysema by CT scan in 09/2023. * Anemia, likely multifactorial. * Electrolyte abnormalities, being corrected with persistent mild hyponatremia. * Hypertension. * Hyperlipoproteinemia. * History of heavy alcohol use, stopped in 2011. * History of statin intolerance. * Bradycardia with conduction system disease by electrocardiogram. This gentleman has been evaluated by me and had been scheduled to undergo endoluminal graft placement in infrarenal abdominal aorta today on an elective basis. Apparently, the patient was in [place] and was getting out of a car when he felt weak. He was trying to step on a stool to get out of the area that he was in and he states that he tripped; however, it is evident that the patient was somewhat confused after the event. He was extensively evaluated in the Emergency Department at [facility]. He was noted to have significant findings as outlined by his prior assessment in our previous evaluations. On assessing the patient today, he states that he is fine. He is asymptomatic. He has denied any chest pain or shortness of breath. He has had no symptoms of palpitations. The patient's vital signs are remarkable for a blood pressure in the 130 systolic range. His heart rate is in the 50s. The patient has significant ecchymosis in the right lateral abdominal wall region from his fall. He also has some bruising on the right elbow. The patient is currently maintained on amlodipine at 5 mg daily, famotidine 20 mg daily. He had been previously maintained on lisinopril 20 b.i.d., which I have been holding. He has also been on dual antiplatelet therapy, but has not been initiated here in the hospital. Laboratory studies revealed a white count of 6.0, H and H of 9.9 and 31.3 respectively. The indices are slightly low. The patient's platelet count is 274,000. His chemistries revealed a sodium of 129, potassium 3.8, chloride of 96, CO2 is 26, his BUN is 16, creatinine 0.5 with a GFR of 106. The patient's random glucose is 93. His magnesium is now up to 2.1 from 1.7 before he got his supplemental magnesium. The patient's TSH is 2.12. This gentleman has multiple medical problems that need to be addressed. Clearly, his aneurysm should be evaluated and managed first and he is scheduled to undergo an endometrial graft placement today. I had a detailed discussion with the patient in the office in regards to the procedure with its benefits, goals, and risks. We reviewed the procedure in detail including the potential for complications and specifically, infection, bleeding, hematoma, myocardial infarction, and . The patient also understands that he has heavily calcified vessels, which would make the procedure more challenging. He understands that he may require bilateral common inguinal artery cutdowns. All his questions were invited and answered once more. He is requested to proceed. ADDENDUM This patient had been evaluated by me earlier this morning. I assessed his prior evaluation and he had a CD of his CAT scan done yesterday at [facility], which I have reviewed prior to the procedure. The only significant difference is that the patient has a significant size left wall hematoma at the distal thoracic and upper abdominal region, this measures approximately 7.5 x 4 cm. This had not been present on the prior study. The patient has significant anemia and he will be transfused one unit of packed RBCs during this procedure. We will have to follow his status closely and continue with additional evaluation for the possible syncope versus presyncope, which may likely be related to hypotension in the setting of anemia and antihypertensive medications TID: [id number] RECEIPT: [id number]
[2024-09-30] MEDS ORDERED: ceFAZolin SODIUM 1 GM VIAL ONE (07:27)
[2024-09-30] MEDS ORDERED: ATROPINE 1MG SYG IVP ONE (07:58)
[2024-09-30] MEDS ORDERED: ePHEDrine SULFate 50 MG/ML AMPULE ONE (08:02)
--- NOTE | 2024-09-30 08:39 | HMCIMG ---
Exam Type: CHEST 1VW Clinical Information: syncope Comparison: None Findings: The lungs are clear of infiltrates. The heart is enlarged. Bony and soft tissue structures of the chest wall are unremarkable. IMPRESSION: Cardiomegaly. Clear lungs.
--- NOTE | 2024-09-30 08:47 | HMCIMG ---
Carotid Duplex and color-flow Doppler bilateral Clinical Information: dizziness, syncope episode, hx R carotid artery stenosis Comparison: None Findings: Mild bilateral bifurcation plaque is seen. No hemodynamically significant stenosis noted. Left Internal Carotid Artery Peak Systolic Velocity (PSV), Left Internal Carotid to Common Carotid Artery peak systolic velocity ratio, Right Internal Carotid Artery Peak Systolic Velocity (PSV) and Right Internal Carotid to Common Carotid Artery peak systolic velocity ratio, are all within normal limits. External carotid artery velocities normal bilaterally. Bilateral vertebral arteries show normal velocities and waveforms with antegrade flow. Impression: No hemodynamically significant stenosis noted. NASCET CRITERIA. The degree of internal carotid artery stenosis is based on NASCET criteria. Normal is no stenosis. Mild is less than 50% stenosis. Moderate is 50-69% stenosis. Severe is 70% to 99% stenosis. Total occlusion is no detectable patent lumen.
[2024-09-30] MEDS ORDERED: FAMOTIDINE 20MG VIAL IV SCH ×2 (09:00)
[2024-09-30] MEDS: amLODIPine 5 MG TAB PO SCH (09:00)
[2024-09-30 09:19] LABS: ABG BASE EXCESS -3.2 mmol/L (-2.0-3.0); ABG HCO3 22.6 mmol/L (21.0-28.0); ABG OXYGEN SATURATION 99.5 % (94.0-98.0); ABG PCO2 44 mmHg (35-48); ABG PH 7.332 (7.350-7.450); CARBON MONOXIDE 0.3 % (0.5-1.5); HHb 0.5; PO2, ARTERIAL BG 382.7 mmHg (83.0-108.0); VENT MODE, BG ANT VENT (ROOM AIR)
[2024-09-30] MEDS ORDERED: HEParin-NS 1,000 UNIT/500 ML 500 ML IV ONE ×2 (09:19→10:21)
[2024-09-30 10:01] LABS: ABG BASE EXCESS -3.3 mmol/L (-2.0-3.0); ABG HCO3 21.4 mmol/L (21.0-28.0); ABG OXYGEN SATURATION 99.5 % (94.0-98.0); ABG PCO2 37 mmHg (35-48); ABG PH 7.378 (7.350-7.450); CARBON MONOXIDE 0.3 % (0.5-1.5); HHb 0.5; PO2, ARTERIAL BG 314.5 mmHg (83.0-108.0); VENT MODE, BG ANT VENT (ROOM AIR)
[2024-09-30] MEDS ORDERED: NOREPINEPHRIN 4MG/NS 250ML 250 ML IV SCH (11:30)
[2024-09-30] MEDS ORDERED: ondanSETRON 4MG INJ IV PRN (11:30)
[2024-09-30] MEDS ORDERED: GLYCOPYRROLATE 0.2 MG/ML 5 ML VIAL ONE (11:35)
[2024-09-30] MEDS ORDERED: NEOSTIGMINE METHYLSULFATE 1MG/ML IV ONE (11:36)
--- NOTE | 2024-09-30 12:55 | NUR ---
Nurse assessed groin and noted that right groin had pulsating bright red blood coming from it. Firm manual pressure applied and dr. graves paged by Carlita Claire RN. Awaiting his return call. 1258: dr graves returned call. Per , "continue manual pressure to groin as needed, no need for ultrasound at this time." 1330:Right groin soft,no hardened areas noted. Area cleansed well, and new pressure dressing applied. Patient tolerated with no discomfort.
[2024-09-30 13:20] LABS: HEMATOCRIT 27.4 % (42-54); MEAN CORPUSCULAR HGB CONC 31.8 g/dL (32.0-36.0); PLATELET COUNT (AUTO) 187 K/uL (130-400); RED BLOOD CELL COUNT(AUTO) 3.34 MIL/uL (4.50-6.20); RED CELL DISTRIBUTION WIDTH 17.6 % (11.0-15.5); WHITE BLOOD COUNT (AUTO) 7.6 K/uL (4.8-10.8)
--- NOTE | 2024-09-30 13:22 | PN ---
[facility]AL[facility] PROGRESS NOTE Date of Service: September 30, 2024 Time of Service: 13:20 SUBJECTIVE: [ ] Mr. Smalls is a 74-year-old male was transferred from [place] and direct admitted [place] [facility] [place]. Chu, Cardiology with the diagnosis of syncope and AAA. The plan for the transfer is AAA repair at [facility] [place] the Cardiothoracic surgeon and his supervising floorperson are located. The patient has a history of HTN, hyperlipoproteinemia, infrarenal abdominal aortic aneurysm measuring 5.3 cm (AAA dx since [address] Johnson f/u on it, per patient), CAD s/p cardiac stents, normal LV systolic function by cardiac catheterization on January 2024, history of heavy alcoholism and tobacco use (stopped in 2011), history of PVD, severe right internal carotid artery stenosis (90% or greater stenosis) as per neck CT on May 2024. The patient underwent right carotid stent angiography and right subclavian artery exposure and closure procedure (right TCA ER and shockwave vascular lithotripsy) on 08/13/2024 for stenosis. Per [facility] chart review: The patient was taken to [facility] ER by EMS for evaluation of accidental fall with syncope that happened prior to arrival. The patient reported he was sitting down at a local restaurant when he got up and reported falling to the ground. The patient was assisted to the ground and denied any complaints of headache or neck trauma. The patient reported he felt dizzy after falling down. Patient was noted to have a low blood pressure by EMS and was given 500 mL bolus of saline. The patient denied abdominal pain and chest pain on arrival to ED patient was reported to be unresponsive for a few seconds as per EMS. The patient reported right elbow pain s/p the fall. CTs done at [facility]: CTA abdomen and pelvis with contrast: 1. Saccular infrarenal abdominal aortic aneurysm measuring up to 5.1 x 5.1 cm in cross-sectional diameter and about 4.8 cm in length. There is prominent mural thrombus noted. No leakage or rupture is identified. 2. The thoracic and abdominal aorta is tortuous and calcified. 3. Vascular calcifications involving the origins of the celiac trunk, SMA and renal arteries without evidence of severe stenosis. 4. Extensive vascular calcifications throughout the iliac and femoral arteries. 5. Bilateral basilar dense atelectasis. 6. Coronary artery disease and cardiomegaly. 7. The left lateral upper abdominal and lower chest wall demonstrates a 7.[address] angio chest: Arthrosclerotic calcification of the thoracic aorta without aneurysmal dilatation or dissection. New 2. Cardiomegaly and CAD. 3. Mild upper mediastinal lymphadenopathy. 4. Extensive interstitial infiltrates throughout both lungs with superimposed pulmonary fibrosis and sensory labetalol emphysema. No dense consult cessation is identified. 5. There is thoracic spondylosis. CT brain without contrast: No acute intracranial abnormalities. Generalized atrophy with chronic periventricular deep white matter ischemic changes. EKG: Sinus rhythm, heart rate 61, prolonged VT interval, probable left atrial enlargement, left BBB. Per chart review the patient was admitted on 08/13/2024 [place] [facility] [place]/p right carotid stent angiogram and right subclavian artery exposure and closure procedure [right TCAR and shockwave vascular lithotripsy] today for stenosis. The patient was discharged on 08/15/2024 by the [facility] team. Patient is seen and examined at bedside, back in the room from medical laboratory technologist. Patient was in small amount of blood through the right groin area. Awake, following commands. REVIEW OF SYSTEMS 12-point ROS reviewed with the patient. All pertinent positives mentioned above. Otherwise negative, noncontributory, non-pertinent. PHYSICAL EXAM GENERAL APPEARANCE: The patient is awake, alert, and oriented, in no acute cardiopulmonary distress. NEUROLOGICAL: Cranial nerves II-XII grossly intact. Motor is 5/5 in bilateral upper and lower extremities proximal to distal. No sensory deficits. HEENT: Face is symmetric. Pupils are equal and reactive. Extraocular movements are intact. NECK: Supple. No JVD. No thyromegaly. No submental, submandibular, pre- /postauricular, occipital or supraclavicular lymphadenopathy. CHEST: Normal chest expansion. No Telemetry. LUNGS: Absence of any rales, rhonchi or any wheezing. CARDIOVASCULAR: Regular. S1 and S2 normal. No appreciable rubs, murmurs or gallops. ABDOMEN: Soft, nontender, and nondistended. There is no rebound, voluntary guarding, or rigidity. : Deferred. No [place]. EXTREMITIES: Non-edematous and not cyanotic. No clubbing. Good capillary refill. SKIN: No skin breakdown. Vital Signs (last 8hr) Date Time Temp Pulse Resp B/P (MAP) Pulse Ox O2 Delivery O2 Flow Rate FiO2 5/5/25 06:55 98.2 52 18 136/68 98 Room Air 09/30/24 06:55 95 Room Air* 0 21 09/30/24 06:37 54 18 N/A Room Air 21 09/30/24 05:44 54 15 140/63 93 Room Air LABS: Laboratory: Test 09/30/24 09:59 09/30/24 04:15 09/30/24 03:31 09/30/24 00:00 Range/Units Blood Gas Specimen Type Arterial Arterial Blood pH 7.378 7.350-7.450 Arterial Blood Partial Pressure CO2 37 35-48 mmHg Arterial Blood Partial Pressure O2 314.5 *H 83.0-108.0 mmHg Arterial Blood HCO3 21.4 21.0-28.0 mmol/L Arterial Blood Oxygen Saturation 99.5 H 94.0-98.0 % Arterial Blood Base Excess -3.3 L -2.0-3.0 mmol/L Hemoglobin (Blood Gas) 10.0 L 13.5-17.5 g/dL Sodium (Blood Gas) 128 L 136-145 MMOL/L Bedside Potassium (Blood Gas) 4.1 3.4-4.5 MMOL/L Bedside Chloride (Blood Gas) 101 98-107 MMOL/L Bedside Glucose (Blood Gas) 107 H 65-95 MG/DL Bedside Ionized Calcium (Blood Gas) 1.09 L 1.15-1.33 MMOL/L Bedside Lactic Acid (Blood Gas) 1.16 H 0.36-0.75 MMOL/L Blood Gas Temperature 37.0 35.5-37.0 CELSIUS Blood Gas Vent Mode ANT VENT ROOM AIR FiO2 100.0 % Blood Gas Specimen Comment ALEX SANTANA-BUDDY White Blood Count 6.0 4.8-10.8 K/uL Red Blood Count 3.90 L 4.50-6.20 MIL/uL Hemoglobin 9.9 L 14.0-18.0 g/dL Hematocrit 31.3 L 42-54 % Mean Corpuscular Volume 80.3 79-99 fL Mean Corpuscular Hemoglobin 25.4 L 27.0-33.0 pg Mean Corpuscular Hemoglobin Concent 31.6 L 32.0-36.0 g/dL Red Cell Distribution Width 17.3 H 11.0-15.5 % Platelet Count 274 130-400 K/uL Mean Platelet Volume 9.5 7.5-10.5 fL Nucleated Red Blood Cells 0.0 0.0-0.19 % Prothrombin Time 10.7 9.6-11.6 SEC Prothromb Time International Ratio 1.01 0.85-1.15 Activated Partial Thromboplast Time 28.0 26.3-35.5 SEC Sodium Level 129 L 136-145 mmol/L Potassium Level 3.8 3.5-5.1 mmol/L Chloride Level 96 L 101-111 mmol/L Carbon Dioxide Level 26 21-32 mmol/L Blood Urea Nitrogen 16 7-18 mg/dL Creatinine 0.5 0.5-1.3 mg/dL Glomerular Filtration Rate Calc 106 >90 mL/min Random Glucose 93 70-105 mg/dL Total Calcium 8.7 8.5-10.1 mg/dL Phosphorus Level 3.5 2.5-4.9 mg/dL Magnesium Level 2.10 1.80-2.40 mg/dL Thyroid Stimulating Hormone (TSH) 2.12 0.36-3.74 uIU/mL Urine Color LIGHT-YELLOW YELLOW Urine Appearance CLOUDY H CLEAR Urine pH 7.0 5.0-8.0 Urine Specific [place] 1.024 1.001-1.031 Urine Protein NEGATIVE NEGATIVE mg/dL Urine Glucose (UA) NEGATIVE NEGATIVE mg/dL Urine Ketones NEGATIVE NEGATIVE mg/dL Urine Occult Blood NEGATIVE NEGATIVE Urine Nitrate NEGATIVE NEGATIVE Urine Bilirubin NEGATIVE NEGATIVE mg/dL Urine Urobilinogen 0.2 0.2-1.0 mg/dL Urine Leukocyte Esterase NEGATIVE NEGATIVE Marissa/uL Urine RBC None 0-1 /HPF Urine WBC None 0-1 /HPF Urine Amorphous Crystals (Auto) RARE None Seen /LPF Urine Bacteria None None Seen /HPF Urine Opiates Screen NEGATIVE NEGATIVE Urine Barbiturates Screen NEGATIVE NEGATIVE Urine Phencyclidine Screen NEGATIVE NEGATIVE Urine Amphetamines Screen NEGATIVE NEGATIVE Urine Benzodiazepines Screen NEGATIVE NEGATIVE Urine Cocaine Screen NEGATIVE NEGATIVE Urine Marijuana (THC) Screen POSITIVE H NEGATIVE Influenza Type A Antigen Negative For Type A NEGATIVE Influenza Type B Antigen Negative For Type B NEGATIVE SARS-CoV-2, RNA, NAAT NEGATIVE SARS CoV-2 NEGATIVE Test 09/29/24 21:29 Range/Units Total Bilirubin 0.2 0.2-1.0 mg/dL Aspartate Amino Transf (AST/SGOT) 17 10-37 U/L Alanine Aminotransferase (ALT/SGPT) 18 12-78 U/L Alkaline Phosphatase 71 50-136 U/L Troponin I High Sensitivity 42 4-75 ng/L B-Type Natriuretic Peptide 24 0-100 pg/mL Total Protein 7.0 6.0-8.3 g/dL Albumin 3.6 3.5-5.0 g/dL Serum Alcohol < 3 0-10 mg/dL Current Medications Medications (Trade) Dose Ordered Sig/Linda Route PRN Reason Start Time Stop Time Status Last Admin Dose Admin Acetaminophen (TYLenol 325MG TAB) 650 mg Q6H PRN PO FEVER/MILD PAIN LEVEL 1-3 09/29/24 21:00 10/29/24 20:59 09/29/24 21:35 650 MG Acetaminophen (TYLenol 650MG SUPPOSITORY) 650 mg Q6H PRN RC FEVER / MILD PAIN 1-3 IF NPO 09/29/24 21:00 10/29/24 20:59 Amlodipine Besylate (NorvASC 5MG TAB) 5 mg DAILY PO 09/30/24 09:00 10/30/24 08:59 Cefazolin Sodium (ANCEF 1 gm vial) 1 gm Q8H IVPB 09/30/24 16:00 10/01/24 00:01 Dextrose (D50w) 50 ml AD PRN IV HYPOGLYCEMIA PROTOCOL 09/29/24 22:30 10/29/24 22:29 Docusate Sodium (COLace 100MG CAP) 100 mg BID PRN PO c 09/29/24 21:00 10/29/24 20:59 Famotidine (Pepcid 20mg Vial) 20 mg BID IV 09/29/24 23:00 10/29/24 22:59 09/29/24 23:00 20 MG Famotidine (Pepcid 20mg Vial) 20 mg BID IV 09/30/24 09:00 09/30/24 01:06 DC Famotidine (Pepcid 20mg Vial) 20 mg BID IV 09/30/24 09:00 09/30/24 01:06 DC Gabapentin (NEURontin 100 mg CAP) 200 mg ONCE PO 09/29/24 22:30 09/30/24 01:06 DC Gabapentin (NEURontin 100 mg CAP) 200 mg ONCE STAT PO 09/29/24 23:35 09/30/24 01:06 DC Gabapentin (NEURontin 100 mg CAP) 200 mg ONCE STAT PO 09/30/24 01:04 09/30/24 01:37 DC Glucagon (Glucagon 1mg Kit) 1 mg AD PRN IM HYPOGLYCEMIA PROTOCOL 09/29/24 22:30 10/29/24 22:29 Hydralazine HCl (APRESOLine 20MG INJ) 10 mg Q4H PRN IV ADMINISTER FOR SBP > 140 09/29/24 21:30 10/29/24 21:29 Ipratropium [place] (AtrovENT UD) 0.5 mg [id number] PRN IH SHORTNESS OF BREATH/WHEEZING 09/29/24 21:00 10/29/24 20:59 Labetalol HCl (TRANdate 20MG SYG) 10 mg Q2H PRN IV SBP GREATER THAN 160 09/29/24 21:00 09/30/24 02:20 DC Lactulose (Constulose 20gm/ 30ml Udcup) 20 gm Q6H PRN PO CONSTIPATION 09/29/24 21:00 10/29/24 20:59 Magnesium Sulfate 50 ml @ 0 mls/hr PROTOCOL PRN IV MAGNESIUM PROTOCOL 09/29/24 22:00 10/29/24 21:59 09/29/24 22:05 25 MLS/HR Magnesium Sulfate 50 ml @ 0 mls/hr PROTOCOL PRN IV MAGNESIUM PROTOCOL 09/29/24 22:30 09/29/24 22:14 DC Morphine Sulfate (morPHINE 4MG SYG) 3 mg Q4H PRN IV MODERATE PAIN (4-6) 09/30/24 11:30 10/07/24 11:29 Nitroglycerin/ Dextrose 250 ml @ 0 mls/hr PROTOCOL IV 09/30/24 11:30 10/30/24 11:29 Norepinephrine 250 ml @ 0 mls/hr PROTOCOL IV 09/30/24 11:30 10/30/24 11:29 Ondansetron HCl (zoFRAN 4MG INJ) 4 mg Q6H PRN IV NAUSEA/VOMITING 09/30/24 11:30 10/30/24 11:29 Ondansetron HCl (zoFRAN 4MG INJ) 4 mg Q6H PRN IVP NAUSEA/VOMITING 09/29/24 21:00 09/30/24 11:52 DC Potassium Chloride 100 ml @ 50 mls/hr AD PRN IV POTASSIUM PROTOCOL 09/29/24 22:30 09/29/24 22:14 DC Potassium Chloride 100 ml @ 100 mls/hr AD PRN IV POTASSIUM PROTOCOL 09/29/24 22:00 10/29/24 21:59 Potassium Chloride (K-Dur/Klor-Con 20meq) 20 meq AD PRN PO POTASSIUM PROTOCOL 09/29/24 22:00 10/29/24 21:59 09/29/24 23:41 20 MEQ Potassium Chloride (KCl 10% Elixir 20meq/15ml) 20 meq AD PRN PO POTASSIUM PROTOCOL 09/29/24 22:00 10/29/24 21:59 Sodium Chloride 1,000 ml @ 150 mls/hr AD IV 09/30/24 11:30 10/01/24 11:29 Zolpidem Tartrate (AmbIEN) 10 mg HS PRN PO INSOMNIA/SLEEP 09/29/24 21:30 10/29/24 21:29 DIAGNOSTICS / RADIOLOGY: [ ] ASSESSMENT: Syncope episode, POA Hypotensive & bradycardia episode, POA Saccular infrarenal abdominal aortic aneurysm measuring up to 5.1 x 5.1 cm in cross-sectional diameter and about 4.8 cm in length, per CT on 09/29/2024 HX of Infrarenal abdominal aortic aneurysm measuring 5.3 cm, per cardiology report on 08/05/24 HX of AAA dx since [address] Johnson f/u on it, per patient Severe right internal carotid artery stenosis [90% or greater stenosis] as per neck CTA on May 2024 s/p right TCAR and shockwave vascular lithotripsy on 08/13/2024 Prominent mural thrombus, per CT on 09/29/2024. Thoracic and abdominal aorta is tortuous and calcified, per CT 09/29/2024 Vascular calcifications involving the origins of the celiac trunk, SMA and renal arteries without evidence of severe stenosis, per CT 09/29/2024 Extensive vascular calcifications throughout the iliac and femoral arteries, per CT 09/29/2024 Bilateral basilar dense atelectasis, per CT on 09/29/2024 Coronary artery disease and cardiomegaly. 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 Arthrosclerotic calcification of the thoracic aorta without aneurysmal dilatation or dissection, per CT 09/29/2024 Mild upper mediastinal lymphadenopathy, per CT 09/29/2024 Extensive interstitial infiltrates throughout both lungs with superimposed pulmonary fibrosis and sensory labetalol emphysema, per CT 09/29/2024 Thoracic spondylosis. Anemia of chronic disease, POA Electrolyte derangement (hyponatremia, hypokalemia, hypochloremia, hypomagne semia) Chronic hyponatremia, POA Chronic problem list: Hypertension, Hyperlipoproteinemia History of nonobstructive CAD, as per cardiac catheterization on January 2024 History of heavy alcohol and tobacco use (quit in 2011) History of peripheral vascular disease with left lower extremity intervention on March 2023 History of statin intolerance Chronic Bradycardia Plan: -remains admitted to the ICU -continue to follow Cardiothoracic input and recommendation -to follow Cardiology input and recommendation -p.r.n. medications for: Pain management, nausea, vomiting, constipation. -carotid Doppler no hemodynamically significant stenosis -Troponin levels and EKG series. -Oxygen supplement as needed to maintain oxygen levels equal to or greater than 92% -Vital signs per ICU. -Reconcile home medications once available. -Glucometer checks q.6 hours with insulin regular sliding scale. -AM labs: CBC, BNP, Mag, phos, TSH, A1c. -Monitor renal and liver function. -Monitor electrolytes and treat accordingly. -DVT and GI prophylaxis: SCDs and Protonix. Total ICU time spent greater than 30 minute KAYDEN CASILLAS MD September 30, 2024 13:22
[2024-09-30 13:39] LABS: ALBUMIN 2.7 g/dL (3.5-5.0); BILIRUBIN,TOTAL 0.4 mg/dL (0.2-1.0); CREATININE 0.5 mg/dL (0.5-1.3); POTASSIUM 3.9 mmol/L (3.5-5.1); TOTAL PROTEIN, SERUM 6.3 g/dL (6.0-8.3)
[2024-09-30] MEDS: morPHINE 4 MG SYG IV PRN (14:45)
[2024-09-30] MEDS: NITROGLYCERIN 50MG/D5W 250ML 250 BOT IV SCH (15:04)
[2024-09-30 15:22] LABS: BAND NEUTROPHILS % (MANUAL) 2 % (0-2); LYMPHOCYTES % (MANUAL) 92 % (22-44); MAN.DIFF COMMENT-IMPRESSION MANUAL DIFFERENTIAL; MONOCYTES % (MANUAL) 2 % (2-9); PLATELET MORPHOLOGY COMMENT ADEQUATE; SEGMENTED NEUTROPHILS % 4 % (40-70); TOTAL CELLS COUNTED 100; WBC MORPHOLOGY CONSISTENT W/DIFF
--- NOTE | 2024-09-30 15:25 | CONS ---
[facility] CONSULTATION NOTE Date Patient Seen: September 30, 2024 Time of Visit: 15:20 Supervising Physician: Dr. Mcnally Reason for Consultation: Critical care management Primary Care Physician: Dr. Juan Hadley Outpatient Specialists: [ ] Inpatient Consults: [ ] PROBLEM LIST: Syncope, POA Hypotensive, POA Saccular infrarenal abdominal aortic aneurysm measuring up to 5.[address] on 09/29/2024 s/p EVAAAR 09/30/24 HX of Infrarenal abdominal aortic aneurysm measuring 5.3 cm, per cardiology report on 08/05/24 HX of AAA dx since [address] Johnson Severe right internal carotid artery stenosis [90% or greater stenosis] as per neck CTA on May 2024 s/p right TCAR and shockwave vascular lithotripsy on 08/13/2024 Prominent mural thrombus, per CT on 09/29/2024. Thoracic and abdominal aorta is tortuous and calcified, per CT 09/29/2024 Vascular calcifications involving the origins of the celiac trunk, SMA and renal arteries without evidence of severe stenosis, per CT 09/29/2024 Extensive vascular calcifications throughout the iliac and femoral arteries, per CT 09/29/2024 Bilateral basilar dense atelectasis, per CT on 09/29/2024 Coronary artery disease and cardiomegaly. 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 Arthrosclerotic calcification of the thoracic aorta without aneurysmal dilatation or dissection, per CT 09/29/2024 Mild upper mediastinal lymphadenopathy, per CT 09/29/2024 Extensive interstitial infiltrates throughout both lungs with superimposed pulmonary fibrosis and sensory labetalol emphysema, per CT 09/29/2024 Anemia of chronic disease, POA Chronic hyponatremia, POA Chronic Bradycardia Hypertension Hyperlipidemia History of nonobstructive CAD, as per cardiac catheterization on January 2024 History of peripheral vascular disease with left lower extremity intervention on March 2023 History of heavy alcohol and tobacco use (quit in 2011) HPI: This is a 74-year-old male patient who has a past medical history that is significant for HTN, hyperlipoproteinemia, infrarenal abdominal aortic aneurysm measuring 5.3 cm (AAA dx since [address] Johnson f/u on it, per patient), CAD s/p cardiac stents, normal LV systolic function by cardiac catheterization on January 2024, history of heavy alcoholism and tobacco use (stopped in 2011), history of PVD, severe right internal carotid artery stenosis (90% or greater stenosis) as per neck CT on May 2024. The patient underwent right carotid stent angiography and right subclavian artery exposure and closure procedure (right TCA ER and shockwave vascular lithotripsy) on 08/13/2024 for stenosis. He presented to [facility] Emergency Department after a accidental fall with syncope. Per the patient report, he was sitting down at a local restaurant, after getting up from his chair, felt dizzy and was assisted to the ground. Per the chart documentation, the EMS was called who rep orted the patient was unresponsive for few sec. He was later transported to [facility] for further evaluation and management of his condition. Workup there, was notable for a extensive interstitial infiltrates throughout both lungs with superimposed pulmonary fibrosis and emphysema noted on CT angio of the chest done admission and [facility] and a saccular infrarenal abdominal aortic aneurysm measuring up to 5.1 x 5.1 cm in cross-sectional diameter and about 4.8 cm in length. There is prominent mural thrombus noted. 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 Because of the findings, the patient was transferred to [facility] for surgical repair of the AAA. The patient was taken to the operating room this a.m. for surgical management of his AAA. Critical care consult was put in place for aggressive management of his condition. At the time of my visit, the patient was recently brought back from the operating room. He is still remains on Cerner some effects of sedation. No other complaint. PAST MEDICAL HX: see above PAST SURGICAL HX: noncontributory SOCIAL HISTORY: No tobacco, ETOH, or illicit drug use Coded Allergies: No Known Drug Allergies (Unverified Allergy, Unknown, 08/02/24) REVIEW OF SYSTEMS: 12 point ROS reviewed with patient. Pertinent positives mentioned above. Otherwise negative. PHYSICAL EXAM: GENERAL: Alert, weak, awake oriented x 3 HEENT: EOMI, Sclera non icteric, moist mucosa NECK: Supple, no JVD, trachea midline LUNGS: Clear breath sounds bilaterally. No wheezes HEART: Regular rate and rhythm. Normal S1 and S2, without murmurs ABD: Abdomen soft, nontender. Bowel sounds present EXT: No clubbing cyanosis or edema NEURO: Minimal effects of anesthesia Vital Signs (last 8hr) Date Time Temp Pulse Resp B/P (MAP) Pulse Ox O2 Delivery O2 Flow Rate FiO2 09/30/24 15:04 149/57 09/30/24 13:26 54 18 149/57 100 Room Air 09/30/24 13:15 56 18 190/80 100 Room Air 09/30/24 13:11 56 18 190/80 100 Room Air 09/30/24 12:56 53 18 104/32 100 Room Air 09/30/24 12:52 54 18 94/54 100 Room Air 09/30/24 12:45 98 Nasal Cannula* 2 28 09/30/24 12:44 52 18 113/41 100 Room Air 09/30/24 12:41 53 18 111/41 100 Room Air 09/30/24 12:34 73 18 128/55 100 Room Air LABS: Hematology Labs: Test 09/30/24 13:14 Range/Units White Blood Count 7.6 # 4.8-10.8 K/uL Red Blood Count 3.34 L 4.50-6.20 MIL/uL Hemoglobin 8.7 L 14.0-18.0 g/dL Hematocrit 27.4 L 42-54 % Mean Corpuscular Volume 82.0 79-99 fL Mean Corpuscular Hemoglobin 26.0 L 27.0-33.0 pg Mean Corpuscular Hemoglobin Concent 31.8 L 32.0-36.0 g/dL Red Cell Distribution Width 17.6 H 11.0-15.5 % Platelet Count 187 # 130-400 K/uL Mean Platelet Volume 9.0 7.5-10.5 fL Nucleated Red Blood Cells 0.0 0.0-0.19 % Chemistry Labs: Test 09/30/24 13:14 09/30/24 04:15 09/29/24 21:29 Range/Units Sodium Level 134 L 136-145 mmol/L Potassium Level 3.9 3.5-5.1 mmol/L Chloride Level 103 101-111 mmol/L Carbon Dioxide Level 24 21-32 mmol/L Blood Urea Nitrogen 11 7-18 mg/dL Creatinine 0.5 0.5-1.3 mg/dL Glomerular Filtration Rate Calc 106 >90 mL/min Random Glucose 134 H 70-105 mg/dL Total Calcium 7.2 L 8.5-10.1 mg/dL Total Bilirubin 0.4 # 0.2-1.0 mg/dL Aspartate Amino Transf (AST/SGOT) 15 10-37 U/L Alanine Aminotransferase (ALT/SGPT) 14 # 12-78 U/L Alkaline Phosphatase 54 50-136 U/L Total Protein 6.3 6.0-8.3 g/dL Albumin 2.7 #L 3.5-5.0 g/dL Phosphorus Level 3.5 2.5-4.9 mg/dL Magnesium Level 2.10 1.80-2.40 mg/dL Thyroid Stimulating Hormone (TSH) 2.12 0.36-3.74 uIU/mL Troponin I High Sensitivity 42 4-75 ng/L B-Type Natriuretic Peptide 24 0-100 pg/mL Coagulation Labs: Test 09/30/24 04:15 Range/Units Prothrombin Time 10.7 9.6-11.6 SEC Prothromb Time International Ratio 1.01 0.85-1.15 Activated Partial Thromboplast Time 28.0 26.3-35.5 SEC DIAGNOSTICS / RADIOLOGY RESULTS: [ ] PLAN The patient was admitted to the ICU, critical care team was consulted. For now, going to continue current management for the patient. He is currently extubated and we will continue to monitor the oxygen saturation and adjust as necessary. The patient did present with postoperative bleeding from the site. Staff nurse currently at bedside holding pressure at the site. Patient will continue on cardiac management per the Cardiology team/CTVS. We will repeat surveillance labs in morning and monitor the electrolyte trend. We will follow the recommendation of the CTS and we will intervene if necessary. We will continue to provide general supportive care, GI and DVT prophylaxis. Further orders per attending MD and hospital course. NEURO: Minimize central acting medications as possible. Fall Precautions. Well lighted room through the day and minimize interruptions through the night to prevent acute delirium. PULMONARY: Supplemental 02 as needed Titrate Fio2 to keep Spo2 > or = 90% DuoNeb�s and CPT as needed IS hourly while awake for pulmonary hygiene Out of bed to chair as tolerated VAP Bundle CARDIOVASCULAR: Follow hemodynamics. Titrate vasopressor to keep MAP >65 or systolic blood pressure >95mmHg DIPS: [ ] LINES: PIV's GI & NUTRITION: Continue nutritional support Aspirations precautions Prokinetic agents and laxatives as needed KIDNEYS & ELECTROLYTES: Strict monitoring of intake and output Daily weights Avoid nephrotoxic agents Monitor electrolytes and replace as needed Goal urine output of 30mL/hr or 0.5mL/kg/hr Urine output: [ ] Fluid Balance: [ ] ENDOCRINE: Maintain blood glucose between 100-180 at all times. Insulin sliding scale for blood glucose management INFECTIOUS DISEASE: Trend temperature. Jett-culture if febrile. Micro: [ ] Antibiotics: [ ] HEMATOLOGY & COAGULATION: Monitor H&H. Keep Hgb > 7 Transfuse 1 unit of PRBC for Hgb < 7 Transfuse 1 pack of platelets of platelets < 20, 000 Watch for any signs and symptoms of bleeding SKIN: Pressure ulcer prevention per facility protocol Rehab: PT/OT Prophylaxis: GI: Famotidine DVT: SCD Code Status: Full Resuscitation Disposition: ICU Other: I personally spent 48 minutes of critical care time in treatment of this patient. This includes patient management, time at bedside, time reviewing tests, labs, appropriate images and studies, documentation, and patient care coordination. This time excludes separately billable procedures. Case was discussed and seen with my supervising physician. The above plan was formulated and agreed upon. MINDI ZAFAR NP September 30, 2024 15:25
[2024-09-30] MEDS: ceFAZolin SODIUM 1 GM VIAL IVPB SCH (16:00)
--- NOTE | 2024-09-30 16:12 | NUR ---
assessed bilateral groins and pulses, found right groin to have bright red oozing (non-pulsating) from puncture site. Direct manual pressure applied, and as per dr graves, apply x 40 minutes. Pressure held on right groin and Ana Paula Emmanuel RN went to obtain blood from blood bank. After application of pressure, puncture site cleansed with chlorhexidine and pressure dresssing re-applied. Right groin remains soft and tender to touch. Left groin remains soft and non-tender. no s/s of hematoma. Documentation completed on [id number] assessment flowsheet via [employer]. Patient voiced fatigue at this time. Nurse remained at bedside to ensure safety at all times.
--- NOTE | 2024-09-30 17:57 | NUR ---
CM NOTE CM attempted room visit to complete initial assessment. No family at bedside. Patient just received pain medication and unable to answer questions. CM attempted call to domestic partner Julianne Johnson [phone] listed on facesheet. No answer, CM left voicemail for call back. CM to reattempt visit tomorrow. Addendum: 09/30/24 at 1759 by SONY MONTANEZ CM Amended: Links added.
[2024-09-30] MEDS: LACTULOSE 20 GM/30 ML UDCUP PO PRN (20:20)
[2024-09-30] MEDS: ZOLPidem TARTrate 5 MG TAB PO PRN (20:21)
[2024-09-30] MEDS: 0.9%NACL 1000ML 1,000 ML IV SCH (22:15)
[2024-10-01] VITALS (89 sets, daily range): BP systolic 111–166; BP diastolic 30–108; PULSE 72–103; RESP 10–55; TEMP 98.1–98.8; O2SAT 92–98
--- NOTE | 2024-10-01 04:31 | CCATH ---
PROCEDURE NOTE PROCEDURES: * Placement of a pigtail catheter in abdominal aorta. * Abdominal aortogram. * Right and left common iliac artery angioplasty, balloon angioplasty, PET FOOD DEBONER. * Right and left common iliac artery shockwave lithotripsy. * Placement of an Endurant II endoluminal graft in the abdominal aorta. * Percutaneous access and repair of the right common femoral artery for a 16-Chinese sheath and the left common femoral artery for a 14-Chinese sheath. INDICATIONS: * Severe peripheral vascular disease. * Secular infrarenal abdominal aortic aneurysm greater than 5 cm. ESTIMATED BLOOD LOSS: Less than 25 mL. ANESTHESIA: Anesthesia with endotracheal intubation. MARKETING INTELLIGENCE ANALYST: Jordy Chu II MD COMPLICATIONS: None. DESCRIPTION OF PROCEDURE: The patient was taken to the cardiac organic lab worker after appropriate operative consents were signed. He was prepped and draped in the usual fashion. After conscious sedation was administered, the right and left common femoral artery lesions were accessed utilizing an ultrasound guidance. The right common femoral artery was dilated with dilators and a 16-Chinese sheath was advanced in retrograde fashion with a modified Seldinger technique over a Lunderquist wire. Similarly, the left common femoral artery was managed with access and then utilization of Perclose sheaths in the 11 o'clock and 1 o'clock positions respectively. We were then able to advance a 14-Chinese sheath in retrograde fashion over an indwelling Lunderquist wire. At this point, both common iliac arteries, which had been imaged previously and noted to have critical stenosis and severe calcific burden were managed with balloon angioplasty and shockwave lithotripsy. We utilized an EverCross 10 x 40 mm balloon and then we were able to place a 9 x 30 shockwave lithotripsy on the left side and on the right side to deliver the total therapy. We then post dilated the left with a mm balloon once more. At this point, the main body of the graft was placed via the right common femoral artery. This was deployed appropriately in the abdominal aorta below the left arteries. Unfortunately, in attempting to cannulate the gate on the left, it was evident that the wire and the limb were deployed posterior to the gate and the aneurysm sac. Given that, we elected to proceed with placement of a Reliant balloon and guide winder, which was able to pull the graft down from the left common iliac artery. We were then able to go through the left common iliac limb into the body of the graft utilizing a glidewire. We then exchanged a glidewire for a Lunderquist wire and placed a bridging iliac limb to cover the area of the graft and the left limb. At this point, the entire body and limbs were dilated with Reliant balloon. This was done simultaneously. At the end of the procedure, angiography confirmed excellent position of the grafts, both limbs being patent, both renal arteries being patent, and both internal and external iliacs being patent. There was a minimal type 1 endoleak at the end of the procedure, which I elected to observe for now. The pre-close was finalized on the right with 2 sutures and Angio-Seal was utilized because of minimal oozing. The left Perclose was utilized with the 2 sutures that had been pre-deployed and had good hemostasis. At this point, the patient is stable, tolerated the procedure well and left the cardiac organic lab worker in stable condition. FINAL IMPRESSION: Successful balloon angioplasty and shockwave lithotripsy of the right and left common iliac arteries with endoluminal graft placement for infrarenal abdominal aorta with good angiographic results. PLAN: Continue medical management. TID: [id number] [facility]: [id number]
[2024-10-01 05:25] LABS: BASOPHILS # (AUTO) 0.02 K/uL (0.00-0.20); BASOPHILS % (AUTO) 0.3 % (0.0-5.0); EOSINOPHILS # (AUTO) 0.06 K/uL (0.00-0.70); EOSINOPHILS % (AUTO) 0.8 % (0.0-8.0); HEMATOCRIT 26.9 % (42-54); IMMATURE GRANULOCYTE ABSOLUTE 0.05 K/uL (0-1); LYMPHOCYTES # (AUTO) 0.5 K/uL (1.0-4.8); LYMPHOCYTES % (AUTO) 7.1 % (21.0-51.0); MEAN CORPUSCULAR HEMOGLOBIN 25.9 pg (27.0-33.0); MONOCYTES # (AUTO) 0.6 K/uL (0.1-1.0); MONOCYTES % (AUTO) 7.8 % (3.0-13.0); NEUTROPHILS % (AUTO) 83.3 % (40.0-77.0); PLATELET COUNT (AUTO) 168 K/uL (130-400); RED BLOOD CELL COUNT(AUTO) 3.32 MIL/uL (4.50-6.20); RED CELL DISTRIBUTION WIDTH 17.5 % (11.0-15.5); WHITE BLOOD COUNT (AUTO) 7.2 K/uL (4.8-10.8)
[2024-10-01 05:55] LABS: CREATININE 0.6 mg/dL (0.5-1.3); POTASSIUM 3.5 mmol/L (3.5-5.1)
[2024-10-01 06:03] LABS: ALBUMIN 2.7 g/dL (3.5-5.0); BILIRUBIN,TOTAL 0.5 mg/dL (0.2-1.0); TOTAL PROTEIN, SERUM 5.4 g/dL (6.0-8.3)
[2024-10-01 06:16] LABS: MAGNESIUM 6.7 mg/dL (1.80-2.40)
--- NOTE | 2024-10-01 07:05 | PN ---
[facility] CARDIOLOGY PROGRESS NOTE Date Patient Seen: October 01, 2024 Time of Visit: 07:04 Problem List: * Near syncope in the setting of hypotension and bradycardia, resolved. * Secular infrarenal abdominal aortic aneurysm, measuring 5.[address] scan in 07/2024. s/p endoluminal graft 09/30/24 * Severe right internal carotid artery stenosis greater than 90% by coronary CTA in 05/2024, status post right TCAR with concomitant shockwave lithotripsy, 08/13/2024. * Vascular calcification involving the origin of the celiac trunk and SMA, as well as the renal arteries without evidence of severe stenosis by CT scan, 09/2024. * Extensive vascular calcification with severe bilateral common iliac artery stenoses and femoral artery stenosis by CT angiogram. s/p angioplasty, shock wave lithotripsy and QUALITY RN 09/30/24 * Bilateral dense vessel atelectasis by CT scan, 09/2024. * History of nonobstructive coronary artery disease by cardiac catheterization in 2023. * Findings of a hematoma by CAT scan, 09/2024. * Mid and upper mediastinal lymphadenopathy by CAT scan, 09/29/2024. * Interstitial infiltrates throughout both lungs and superimposed pulmonary fibrotic changes with emphysema by CT scan in 09/2023. * Anemia, likely multifactorial. * Electrolyte abnormalities, being corrected with persistent mild hyponatremia. * Hypertension. * Hyperlipoproteinemia. * History of heavy alcohol use, stopped in 2011. * History of statin intolerance. * Bradycardia with conduction system disease by electrocardiogram. * Left abd wall hematoma at the distal thoracic and upper abdominal region, this measures approximately 7.5 x [address] from [place] * Recent Echo from 2024, demonstrated preserved EF, 55-60% Interval History: Pt is evaluated in ICU th is morning post endoluminal graft and lithotripsy. Pt's BP running on the higher side today and SR in the 90's. Groins without complication,pulses palpable Pt has no fever, no chills. Pain is well controlled. He has elevated mag levels this morning and is with stable Hgb overnight. CT of abd done in [place] demonstrated an fluid collection, concerning for hematoma, likely the provocation for anemia and hypotension. Carotids without hemodynamically disease and echo demonstrated preserved EF at 55-60% July 2024. We will try to mobilize pt today, monitor the h/h q6h and avoid transfusion for hgb >8. Resuming DAPT today. Orthostatic BP's to be checked and PT to work with pt as able. Physical Examination: GENERAL: [No acute distress.] HEAD: [Normal with no signs of head trauma.] EYES: [PERRLA, EOMI, conjunctiva and sclera normal.] ENT: [Hearing grossly intact, normal oropharynx.] NECK: [Supple without JVD. There is no tenderness, lymphadenopathy, or masses. No thyromegaly. Normal carotid upstrokes without bruits.] LUNGS: [Clear breath sounds bilaterally. There are right basilar rales one third of the way up the chest. No wheezes, or rhonchi.] HEART: [Normal rate and rhythm. Normal S1 and S2 without mumurs, gallop or rub.] VASC: [Peripheral pulses +2 bilaterally.] ABD: [Bowel sounds normal, soft, nontender, no masses, no organomegaly. No audible bruits.] : [Not examined] LYMPH: [No lymphadenopathy noted.] EXT: [No clubbing, cyanosis or edema.] SKIN: [No rashes or lesions noted.] NEURO: [Awake, alert, and oriented x3. No focal sensory or strength deficits noted.] Laboratory: [ ] Hematology Labs: Test 10/01/24 04:54 09/30/24 13:14 Range/Units White Blood Count 7.2 4.8-10.8 K/uL Red Blood Count 3.32 L 4.50-6.20 MIL/uL Hemoglobin 8.6 L 14.0-18.0 g/dL Hematocrit 26.9 L 42-54 % Mean Corpuscular Volume 81.0 79-99 fL Mean Corpuscular Hemoglobin 25.9 L 27.0-33.0 pg Mean Corpuscular Hemoglobin Concent 32.0 32.0-36.0 g/dL Red Cell Distribution Width 17.5 H 11.0-15.5 % Platelet Count 168 130-400 K/uL Mean Platelet Volume 9.4 7.5-10.5 fL Immature Granulocyte % (Auto) 0.7 0-1 % Neutrophils (%) (Auto) 83.3 H 40.0-77.0 % Lymphocytes (%) (Auto) 7.1 L 21.0-51.0 % Monocytes (%) (Auto) 7.8 3.0-13.0 % Eosinophils (%) (Auto) 0.8 0.0-8.0 % Basophils (%) (Auto) 0.3 0.0-5.0 % Neutrophils # (Auto) 6.0 1.8-7.7 K/uL Lymphocytes # (Auto) 0.5 L 1.0-4.8 K/uL Monocytes # (Auto) 0.6 0.1-1.0 K/uL Eosinophils # (Auto) 0.06 0.00-0.70 K/uL Basophils # (Auto) 0.02 0.00-0.20 K/uL Absolute Immature Granulocyte (auto 0.05 0-1 K/uL Nucleated Red Blood Cells 0.0 0.0-0.19 % Segmented Neutrophils % 4 L 40-70 % Band Neutrophils % 2 0-2 % Lymphocytes % (Manual) 92 H 22-44 % Monocytes % (Manual) 2 2-9 % Differential Comment MANUAL DIFFERENTIAL White Cell Morphology Comment CONSISTENT W/DIFF Platelet Morphology Comment ADEQUATE Red Blood Cell Morphology NORMAL Chemistry Labs: Test 10/01/24 04:54 09/30/24 04:15 09/29/24 21:29 Range/Units Sodium Level 134 L 136-145 mmol/L Potassium Level 3.5 3.5-5.1 mmol/L Chloride Level 100 L 101-111 mmol/L Carbon Dioxide Level 26 21-32 mmol/L Blood Urea Nitrogen 10 7-18 mg/dL Creatinine 0.6 0.5-1.3 mg/dL Glomerular Filtration Rate Calc 100 >90 mL/min Random Glucose 105 70-105 mg/dL Total Calcium 7.2 L 8.5-10.1 mg/dL Magnesium Level 6.70 *H 1.80-2.40 mg/dL Total Bilirubin 0.5 # 0.2-1.0 mg/dL Aspartate Amino Transf (AST/SGOT) 13 10-37 U/L Alanine Aminotransferase (ALT/SGPT) 14 12-78 U/L Alkaline Phosphatase 53 50-136 U/L Total Protein 5.4 L 6.0-8.3 g/dL Albumin 2.7 L 3.5-5.0 g/dL Phosphorus Level 3.5 2.5-4.9 mg/dL Thyroid Stimulating Hormone (TSH) 2.12 0.36-3.74 uIU/mL Troponin I High Sensitivity 42 4-75 ng/L B-Type Natriuretic Peptide 24 0-100 pg/mL Coagulation Labs: Test 09/30/24 04:15 Range/Units Prothrombin Time 10.7 9.6-11.6 SEC Prothromb Time International Ratio 1.01 0.85-1.15 Activated Partial Thromboplast Time 28.0 26.3-35.5 SEC Diagnostics / Radiology: [Copy/Paste Echos/Imaging Report here] Impression and Plan: Add metoprolol 12.5mg po bid Resume DAPT Monitor h/h q6h Follow up on mag level, repeat to verify accuracy PT to eval and treat GIAN GAN NP October 01, 2024 07:05
[2024-10-01] MEDS: CYANOCOBALAMIN (VITAMIN B-12) 1,000 MCG TABLET PO SCH (08:06)
[2024-10-01] MEDS: ASPIRIN 81MG CHEW TAB PO SCH (08:07)
[2024-10-01] MEDS: metoPROLOL tartRATE 25 MG TAB PO SCH (08:07)
[2024-10-01] MEDS: cloPIDOgrel 75MG TAB PO SCH (08:07)
[2024-10-01] MEDS: (Zinc Sulfate (Zinc) 50 MG) PO SCH (08:07)
--- NOTE | 2024-10-01 10:01 | PN ---
[facility] PROGRESS NOTE Date of Service: October 01, 2024 Time of Service: 09:58 SUBJECTIVE: [ ] Mr. Smalls is a 74-year-old male was transferred from [place] and direct admitted to [facility] by Dr. Chu, Cardiology with the diagnosis of syncope and AAA. The plan for the transfer is AAA repair at [facility] where the Cardiothoracic surgeon and his financial management are located. The patient has a history of HTN, hyperlipoproteinemia, infrarenal abdominal aortic aneurysm measuring 5.3 cm (AAA dx since [address] Johnson f/u on it, per patient), CAD s/p cardiac stents, normal LV systolic function by cardiac catheterization on January 2024, history of heavy alcoholism and tobacco use (stopped in 2011), history of PVD, severe right internal carotid artery stenosis (90% or greater stenosis) as per neck CT on May 2024. The patient underwent right carotid stent angiography and right subclavian artery exposure and closure procedure (right TCA ER and shockwave vascular lithotripsy) on 08/13/2024 for stenosis. Per [facility] chart review: The patient was taken to [facility] ER by EMS for evaluation of accidental fall with syncope that happened prior to arrival. The patient reported he was sitting down at a local restaurant when he got up and reported falling to the ground. The patient was assisted to the ground and denied any complaints of headache or neck trauma. The patient reported he felt dizzy after falling down. Patient was noted to have a low blood pressure by EMS and was given 500 mL bolus of saline. The patient denied abdominal pain and chest pain on arrival to ED patient was reported to be unresponsive for a few seconds as per EMS. The patient reported right elbow pain s/p the fall. CTs done at [facility]: CTA abdomen and pelvis with contrast: 1. Saccular infrarenal abdominal aortic aneurysm measuring up to 5.1 x 5.1 cm in cross-sectional diameter and about 4.8 cm in length. There is prominent mural thrombus noted. No leakage or rupture is identified. 2. The thoracic and abdominal aorta is tortuous and calcified. 3. Vascular calcifications involving the origins of the celiac trunk, SMA and renal arteries without evidence of severe stenosis. 4. Extensive vascular calcifications throughout the iliac and femoral arteries. 5. Bilateral basilar dense atelectasis. 6. Coronary artery disease and cardiomegaly. 7. The left lateral upper abdominal and lower chest wall demonstrates a 7.[address] angio chest: Arthrosclerotic calcification of the thoracic aorta without aneurysmal dilatation or dissection. New 2. Cardiomegaly and CAD. 3. Mild upper mediastinal lymphadenopathy. 4. Extensive interstitial infiltrates throughout both lungs with superimposed pulmonary fibrosis and sensory labetalol emphysema. No dense consult cessation is identified. 5. There is thoracic spondylosis. CT brain without contrast: No acute intracranial abnormalities. Generalized atrophy with chronic periventricular deep white matter ischemic changes. EKG: Sinus rhythm, heart rate 61, prolonged SC interval, probable left atrial enlargement, left BBB. Per chart review the patient was admitted on 08/13/2024 at [facility] s/p right carotid stent angiogram and right subclavian artery exposure and closure procedure [right TCAR and shockwave vascular lithotripsy] today for stenosis. The patient was discharged on 08/15/2024 by the [facility] team. Patient is seen and examined at bedside, back in the room from crime laboratory analyst. Patient was in small amount of blood through the right groin area. Awake, following commands. 10/01 patient is seen and examined at bedside, case discussed with the RN, patient is status post endoluminal graft in the abdominal aorta done 09/30/24. After procedure the patient was was blood from the right groin area, patient is status post transfusion of 2 units of PRBC. Hemoglobin today 8.6, hematocrit 26.9. There was no need to start the patient on Levophed drip. The patient is off nitroglycerin drip since earlier this morning. He remains afebrile saturating normal on room air. Denies chest pain, denied shortness a breath, no nausea, no vomiting, no abdominal pain. REVIEW OF SYSTEMS 12-point ROS reviewed with the patient. All pertinent positives mentioned above. Otherwise negative, noncontributory, non-pertinent. PHYSICAL EXAM GENERAL APPEARANCE: The patient is awake, alert, and oriented, in no acute cardiopulmonary distress. NEUROLOGICAL: Cranial nerves II-XII grossly intact. Motor is 5/5 in bilateral upper and lower extremities proximal to distal. No sensory deficits. HEENT: Face is symmetric. Pupils are equal and reactive. Extraocular movements are intact. NECK: Supple. No JVD. No thyromegaly. No submental, submandibular, pre- /postauricular, occipital or supraclavicular lymphadenopathy. CHEST: Normal chest expansion. No Telemetry. LUNGS: Absence of any rales, rhonchi or any wheezing. CARDIOVASCULAR: Regular. S1 and S2 normal. No appreciable rubs, murmurs or gallops. ABDOMEN: Soft, nontender, and nondistended. There is no rebound, voluntary guarding, or rigidity. : Deferred. No [place]ango. EXTREMITIES: Non-edematous and not cyanotic. No clubbing. Good capillary refill. SKIN: No skin breakdown. Vital Signs (last 8hr) Date Time Temp Pulse Resp B/P (MAP) Pulse Ox O2 Delivery O2 Flow Rate FiO2 10/01/24 07:53 96 Room Air* 0 21 10/01/24 07:30 87 12 137/69 97 Room Air 21 10/01/24 07:00 91 12 120/59 (79) 97 10/01/24 07:00 98.4 91 13 120/59 96 Room Air 21 10/01/24 06:45 102 16 137/99 (112) 96 10/01/24 06:30 103 17 114/64 (81) 95 10/01/24 06:28 99 20 N/Cannula Low lpm 2.0 28 10/01/24 06:15 99 13 141/76 (97) 96 10/01/24 06:00 97 21 141/71 (94) 96 10/01/24 05:45 99 13 139/85 (103) 97 10/01/24 05:30 95 13 146/78 (100) 97 10/01/24 05:15 97 13 142/69 (93) 98 10/01/24 05:00 89 10 141/68 (92) 97 10/01/24 04:45 90 11 143/38 (73) 97 128/64 (85) 10/01/24 04:40 88 17 143/37 (72) 93 10/01/24 04:35 92 20 135/34 (67) 94 10/01/24 04:30 87 12 140/33 (68) 95 10/01/24 04:25 90 12 140/35 (70) 94 10/01/24 04:20 85 13 137/33 (67) 93 10/01/24 04:15 87 13 143/34 (70) 94 139/59 (85) 10/01/24 04:10 87 12 142/35 (70) 94 10/01/24 04:05 85 12 140/34 (69) 94 10/01/24 04:00 96 Room Air* 0 21 10/01/24 04:00 98.4 Room Air 21 10/01/24 04:00 98.4 85 13 130/31 (64) 95 10/01/24 03:55 87 11 138/34 (68) 96 10/01/24 03:50 91 12 143/35 (71) 96 10/01/24 03:45 85 13 136/35 (68) 94 137/67 (90) 10/01/24 03:40 88 13 137/35 (69) 95 10/01/24 03:35 90 13 132/32 (65) 95 10/01/24 03:30 88 11 144/36 (72) 95 10/01/24 03:25 84 13 135/33 (67) 94 10/01/24 03:20 88 14 138/40 (72) 96 10/01/24 03:15 86 12 139/35 (69) 94 126/54 (78) 10/01/24 03:10 85 13 130/31 (64) 94 10/01/24 03:05 83 12 134/33 (66) 94 10/01/24 03:00 86 13 139/35 (69) 96 10/01/24 02:55 84 14 135/33 (67) 95 10/01/24 02:50 88 16 137/35 (69) 94 10/01/24 02:45 84 14 129/32 (64) 94 125/62 (83) 10/01/24 02:40 86 14 128/32 (64) 93 10/01/24 02:35 88 14 130/32 (64) 94 10/01/24 02:30 85 12 136/36 (69) 96 10/01/24 02:25 85 13 137/36 (69) 95 10/01/24 02:20 89 13 135/35 (68) 95 10/01/24 02:15 82 13 126/31 (62) 95 10/01/24 02:14 85 13 140/36 (70) 94 129/58 (81) 10/01/24 02:10 84 12 131/33 (65) 93 10/01/24 02:05 81 13 127/31 (63) 95 10/01/24 02:00 83 14 136/34 (68) 94 LABS: Laboratory: Test 10/01/24 07:12 10/01/24 04:54 09/30/24 13:14 09/30/24 09:59 Range/Units Magnesium Level 1.50 #L 1.80-2.40 mg/dL White Blood Count 7.2 4.8-10.8 K/uL Red Blood Count 3.32 L 4.50-6.20 MIL/uL Hemoglobin 8.6 L 14.0-18.0 g/dL Hematocrit 26.9 L 42-54 % Mean Corpuscular Volume 81.0 79-99 fL Mean Corpuscular Hemoglobin 25.9 L 27.0-33.0 pg Mean Corpuscular Hemoglobin Concent 32.0 32.0-36.0 g/dL Red Cell Distribution Width 17.5 H 11.0-15.5 % Platelet Count 168 130-400 K/uL Mean Platelet Volume 9.4 7.5-10.5 fL Immature Granulocyte % (Auto) 0.7 0-1 % Neutrophils (%) (Auto) 83.3 H 40.0-77.0 % Lymphocytes (%) (Auto) 7.1 L 21.0-51.0 % Monocytes (%) (Auto) 7.8 3.0-13.0 % Eosinophils (%) (Auto) 0.8 0.0-8.0 % Basophils (%) (Auto) 0.3 0.0-5.0 % Neutrophils # (Auto) 6.0 1.8-7.7 K/uL Lymphocytes # (Auto) 0.5 L 1.0-4.8 K/uL Monocytes # (Auto) 0.6 0.1-1.0 K/uL Eosinophils # (Auto) 0.06 0.00-0.70 K/uL Basophils # (Auto) 0.02 0.00-0.20 K/uL Absolute Immature Granulocyte (auto 0.05 0-1 K/uL Nucleated Red Blood Cells 0.0 0.0-0.19 % Sodium Level 134 L 136-145 mmol/L Potassium Level 3.5 3.5-5.1 mmol/L Chloride Level 100 L 101-111 mmol/L Carbon Dioxide Level 26 21-32 mmol/L Blood Urea Nitrogen 10 7-18 mg/dL Creatinine 0.6 0.5-1.3 mg/dL Glomerular Filtration Rate Calc 100 >90 mL/min Random Glucose 105 70-105 mg/dL Total Calcium 7.2 L 8.5-10.1 mg/dL Total Bilirubin 0.5 # 0.2-1.0 mg/dL Aspartate Amino Transf (AST/SGOT) 13 10-37 U/L Alanine Aminotransferase (ALT/SGPT) 14 12-78 U/L Alkaline Phosphatase 53 50-136 U/L Total Protein 5.4 L 6.0-8.3 g/dL Albumin 2.7 L 3.5-5.0 g/dL Segmented Neutrophils % 4 L 40-70 % Band Neutrophils % 2 0-2 % Lymphocytes % (Manual) 92 H 22-44 % Monocytes % (Manual) 2 2-9 % Differential Comment MANUAL DIFFERENTIAL White Cell Morphology Comment CONSISTENT W/DIFF Platelet Morphology Comment ADEQUATE Red Blood Cell Morphology NORMAL Blood Gas Specimen Type Arterial Arterial Blood pH 7.378 7.350-7.450 Arterial Blood Partial Pressure CO2 37 35-48 mmHg Arterial Blood Partial Pressure O2 314.5 *H 83.0-108.0 mmHg Arterial Blood HCO3 21.4 21.0-28.0 mmol/L Arterial Blood Oxygen Saturation 99.5 H 94.0-98.0 % Arterial Blood Base Excess -3.3 L -2.0-3.0 mmol/L Hemoglobin (Blood Gas) 10.0 L 13.5-17.5 g/dL Sodium (Blood Gas) 128 L 136-145 MMOL/L Bedside Potassium (Blood Gas) 4.1 3.4-4.5 MMOL/L Bedside Chloride (Blood Gas) 101 98-107 MMOL/L Bedside Glucose (Blood Gas) 107 H 65-95 MG/DL Bedside Ionized Calcium (Blood Gas) 1.09 L 1.15-1.33 MMOL/L Bedside Lactic Acid (Blood Gas) 1.16 H 0.36-0.75 MMOL/L Blood Gas Temperature 37.0 35.5-37.0 CELSIUS Blood Gas Vent Mode ANT VENT ROOM AIR FiO2 100.0 % Blood Gas Specimen Comment ALEX SANTANA-CR Test 09/30/24 04:15 09/30/24 03:31 09/30/24 00:00 09/29/24 21:29 Range/Units Prothrombin Time 10.7 9.6-11.6 SEC Prothromb Time International Ratio 1.01 0.85-1.15 Activated Partial Thromboplast Time 28.0 26.3-35.5 SEC Phosphorus Level 3.5 2.5-4.9 mg/dL Thyroid Stimulating Hormone (TSH) 2.12 0.36-3.74 uIU/mL Urine Color LIGHT-YELLOW YELLOW Urine Appearance CLOUDY H CLEAR Urine pH 7.0 5.0-8.0 Urine Specific [place] 1.024 1.001-1.031 Urine Protein NEGATIVE NEGATIVE mg/dL Urine Glucose (UA) NEGATIVE NEGATIVE mg/dL Urine Ketones NEGATIVE NEGATIVE mg/dL Urine Occult Blood NEGATIVE NEGATIVE Urine Nitrate NEGATIVE NEGATIVE Urine Bilirubin NEGATIVE NEGATIVE mg/dL Urine Urobilinogen 0.2 0.2-1.0 mg/dL Urine Leukocyte Esterase NEGATIVE NEGATIVE Marissa/uL Urine RBC None 0-1 /HPF Urine WBC None 0-1 /HPF Urine Amorphous Crystals (Auto) RARE None Seen /LPF Urine Bacteria None None Seen /HPF Urine Opiates Screen NEGATIVE NEGATIVE Urine Barbiturates Screen NEGATIVE NEGATIVE Urine Phencyclidine Screen NEGATIVE NEGATIVE Urine Amphetamines Screen NEGATIVE NEGATIVE Urine Benzodiazepines Screen NEGATIVE NEGATIVE Urine Cocaine Screen NEGATIVE NEGATIVE Urine Marijuana (THC) Screen POSITIVE H NEGATIVE Influenza Type A Antigen Negative For Type A NEGATIVE Influenza Type B Antigen Negative For Type B NEGATIVE SARS-CoV-2, RNA, NAAT NEGATIVE SARS CoV-2 NEGATIVE Troponin I High Sensitivity 42 4-75 ng/L B-Type Natriuretic Peptide 24 0-100 pg/mL Serum Alcohol < 3 0-10 mg/dL Current Medications Medications (Trade) Dose Ordered Sig/Linda Route PRN Reason Start Time Stop Time Status Last Admin Dose Admin Acetaminophen (TYLenol 325MG TAB) 650 mg Q6H PRN PO FEVER/MILD PAIN LEVEL 1-3 09/29/24 21:00 10/29/24 20:59 10/01/24 05:25 650 MG Acetaminophen (TYLenol 650MG SUPPOSITORY) 650 mg Q6H PRN RC FEVER / MILD PAIN 1-3 IF NPO 09/29/24 21:00 10/29/24 20:59 Amlodipine Besylate (NorvASC 5MG TAB) 5 mg DAILY PO 09/30/24 09:00 10/30/24 08:59 10/01/24 08:07 5 MG Aspirin (Aspirin 81mg Chew Tab) 81 mg DAILY PO 10/01/24 09:00 10/31/24 08:59 10/01/24 08:07 81 MG Atorvastatin Calcium (LIPItor 40MG) 40 mg HS PO 10/01/24 21:00 10/31/24 20:59 Cefazolin Sodium (ANCEF 1 gm vial) 1 gm Q8H IVPB 09/30/24 16:00 10/01/24 00:01 DC 09/30/24 23:12 1 GM Clopidogrel Bisulfate (plaVIX 75MG) 75 mg AM PO 10/01/24 09:00 10/31/24 08:59 10/01/24 08:07 75 MG Dextrose (D50w) 50 ml AD PRN IV HYPOGLYCEMIA PROTOCOL 09/29/24 22:30 10/29/24 22:29 Docusate Sodium (COLace 100MG CAP) 100 mg BID PRN PO c 09/29/24 21:00 10/29/24 20:59 Ergocalciferol (Drisdol) 50,000 unit QWEEK PO 10/02/24 09:00 11/01/24 08:59 Famotidine (Pepcid 20mg Vial) 20 mg BID IV 09/29/24 23:00 10/29/24 22:59 10/01/24 08:06 20 MG Famotidine (Pepcid 20mg Vial) 20 mg BID IV 09/30/24 09:00 09/30/24 01:06 DC Famotidine (Pepcid 20mg Vial) 20 mg BID IV 09/30/24 09:00 09/30/24 01:06 DC Gabapentin (NEURontin 100 mg CAP) 200 mg ONCE PO 09/29/24 22:30 09/30/24 01:06 DC Gabapentin (NEURontin 100 mg CAP) 200 mg ONCE STAT PO 09/29/24 23:35 09/30/24 01:06 DC Gabapentin (NEURontin 100 mg CAP) 200 mg ONCE STAT PO 09/30/24 01:04 09/30/24 01:37 DC Glucagon (Glucagon 1mg Kit) 1 mg AD PRN IM HYPOGLYCEMIA PROTOCOL 09/29/24 22:30 10/29/24 22:29 Home Med (Home Medication) (Zinc Sulfate (Zinc)... DAILY PO 10/01/24 09:00 10/31/24 08:59 Hydralazine HCl (APRESOLine 20MG INJ) 10 mg Q4H PRN IV ADMINISTER FOR SBP > 140 09/29/24 21:30 10/29/24 21:29 Ipratropium [place] (AtrovENT UD) 0.5 mg [id number] PRN IH SHORTNESS OF BREATH/WHEEZING 09/29/24 21:00 10/29/24 20:59 Labetalol HCl (TRANdate 20MG SYG) 10 mg Q2H PRN IV SBP GREATER THAN 160 09/29/24 21:00 09/30/24 02:20 DC Lactulose (Constulose 20gm/ 30ml Udcup) 20 gm Q6H PRN PO CONSTIPATION 09/29/24 21:00 10/29/24 20:59 09/30/24 20:20 20 GM Magnesium Sulfate 50 ml @ 0 mls/hr PROTOCOL PRN IV MAGNESIUM PROTOCOL 09/29/24 22:00 10/29/24 21:59 10/01/24 08:54 25 MLS/HR Magnesium Sulfate 50 ml @ 0 mls/hr PROTOCOL PRN IV MAGNESIUM PROTOCOL 09/29/24 22:30 09/29/24 22:14 DC Metoprolol Tartrate (loprESSOR) 12.5 mg BID PO 10/01/24 09:00 10/31/24 08:59 10/01/24 08:07 12.5 MG Miscellaneous Medication (Zolpidem Tartrate (Ambien)) 10 mg PM PO 10/01/24 21:00 10/01/24 07:02 DC Morphine Sulfate (morPHINE 4MG SYG) 3 mg Q4H PRN IV MODERATE PAIN (4-6) 09/30/24 11:30 10/07/24 11:29 10/01/24 09:01 3 MG Nitroglycerin/ Dextrose 250 ml @ 0 mls/hr PROTOCOL IV 09/30/24 11:30 10/30/24 11:29 09/30/24 15:04 1.5 MLS/HR Norepinephrine 250 ml @ 0 mls/hr PROTOCOL IV 09/30/24 11:30 10/30/24 11:29 Ondansetron HCl (zoFRAN 4MG INJ) 4 mg Q6H PRN IV NAUSEA/VOMITING 09/30/24 11:30 10/30/24 11:29 Ondansetron HCl (zoFRAN 4MG INJ) 4 mg Q6H PRN IVP NAUSEA/VOMITING 09/29/24 21:00 09/30/24 11:52 DC Potassium Chloride 100 ml @ 50 mls/hr AD PRN IV POTASSIUM PROTOCOL 09/29/24 22:30 09/29/24 22:14 DC Potassium Chloride 100 ml @ 100 mls/hr AD PRN IV POTASSIUM PROTOCOL 09/29/24 22:00 10/29/24 21:59 Potassium Chloride (K-Dur/Klor-Con 20meq) 20 meq AD PRN PO POTASSIUM PROTOCOL 09/29/24 22:00 10/29/24 21:59 09/29/24 23:41 20 MEQ Potassium Chloride (KCl 10% Elixir 20meq/15ml) 20 meq AD PRN PO POTASSIUM PROTOCOL 09/29/24 22:00 10/29/24 21:59 Sodium Chloride 1,000 ml @ 150 mls/hr AD IV 09/30/24 11:30 10/01/24 11:29 09/30/24 22:15 150 MLS/HR Vitamin B Complex (Vitamin B-12) 1,000 mcg DAILY PO 10/01/24 09:00 10/31/24 08:59 10/01/24 08:06 1,000 MCG Zolpidem Tartrate (AmbIEN) 10 mg HS PRN PO INSOMNIA/SLEEP 09/29/24 21:30 10/29/24 21:29 09/30/24 20:21 10 MG DIAGNOSTICS / RADIOLOGY: [ ] ASSESSMENT: Syncope episode, POA Hypotensive & bradycardia episode, POA Saccular infrarenal abdominal aortic aneurysm measuring up to 5.1 x 5.1 cm in cross-sectional diameter and about 4.8 cm in length, per CT on 09/29/2024 HX of Infrarenal abdominal aortic aneurysm measuring 5.3 cm, per cardiology report on 08/05/24 HX of AAA dx since [address] Johnson f/u on it, per patient Severe right internal carotid artery stenosis [90% or greater stenosis] as per neck CTA on May 2024 s/p right TCAR and shockwave vascular lithotripsy on 08/13/2024 Prominent mural thrombus, per CT on 09/29/2024. Thoracic and abdominal aorta is tortuous and calcified, per CT 09/29/2024 Vascular calcifications involving the origins of the celiac trunk, SMA and renal arteries without evidence of severe stenosis, per CT 09/29/2024 Extensive vascular calcifications throughout the iliac and femoral arteries, per CT 09/29/2024 Bilateral basilar dense atelectasis, per CT on 09/29/2024 Coronary artery disease and cardiomegaly. 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 Arthrosclerotic calcification of the thoracic aorta without aneurysmal dila tation or dissection, per CT 09/29/2024 Mild upper mediastinal lymphadenopathy, per CT 09/29/2024 Extensive interstitial infiltrates throughout both lungs with superimposed pulmonary fibrosis and sensory labetalol emphysema, per CT 09/29/2024 Thoracic spondylosis. Anemia of chronic disease, POA Electrolyte derangement (hyponatremia, hypokalemia, hypochloremia, hypomagnesemia) Chronic hyponatremia, POA Chronic problem list: Hypertension, Hyperlipoproteinemia History of nonobstructive CAD, as per cardiac catheterization on January 2024 History of heavy alcohol and tobacco use (quit in 2011) History of peripheral vascular disease with left lower extremity intervention on March 2023 History of statin intolerance Chronic Bradycardia PLAN: Patient to be downgraded to the PCU Patient is status post endoluminal graft in the abdominal aorta done 09/30/24. After procedure the patient was was blood from the right groin area, patient is status post transfusion of 2 units of PRBC. Hemoglobin today 8.6, hematocrit 26.9. There was no need to start the patient on Levophed drip. The patient is off nitroglycerin drip since earlier this morning. He remains afebrile saturating normal on room air. Denies chest pain, denied shortness a breath, no nausea, no vomiting, no abdominal pain. Advanced diet to heart healthy diet Continue to follow Cardiology input and recommendation NEURO: Minimize central acting medications as possible. Fall Precautions. Well lighted room through the day and minimize interruptions through the night to prevent acute delirium. PULMONARY: Supplemental 02 as needed BiPAP as necessary, for respiratory distress Titrate Fio2 to keep Spo2 > or = 90% DuoNeb�s and CPT as needed IS hourly while awake for pulmonary hygiene prn Out of bed to chair as tolerated Maintain aspiration precautions at all times CARDIOVASCULAR: Follow hemodynamics. Vital signs per facility protocol GI & NUTRITION: Continue nutritional support Aspirations precautions Prokinetic agents and laxatives as needed KIDNEYS & ELECTROLYTES: Strict monitoring of intake and output Daily weights Avoid nephrotoxic agents Monitor electrolytes and replace as needed Goal urine output of 30mL/hr or 0.5mL/kg/hr Medications to be dosed according to renal function. Avoid contrast if possible ENDOCRINE: Maintain blood glucose between 100-180 at all times. Insulin sliding scale for blood glucose management Hypoglycemia and hyperglycemia protocol in place INFECTIOUS DISEASE: Trend temperature, WBC and procalcitonin level Follow cultures, deescalate antibiotics as soon as possible. Panculture if new onset fever HEMATOLOGY & COAGULATION: Monitor H&H. Keep Hgb > 7 Transfuse 1 unit of PRBC for Hgb < 7 Transfuse 1 pack of platelets of platelets < 20, 000 Watch for any signs and symptoms of bleeding SKIN: Pressure ulcer prevention per facility protocol Specialty mattress as needed ORTHO/REHAB Continue PT/OT PRN: MEDICATIONS Tylenol 650 mg po every 4 hrs for fever zofran 4 mg IV every 6 hrs for n/v Hydralazine 5 mg IV every 4 hrs systolic pressure > 160 bowel regiment: lactulose 20 gm PO BID PRN constipation Supportive measures: Continue GI and DVT prophylaxis Disposition: Patient to be downgraded to the PCU All questions answered time spent: > 35 min KAYDEN CASILLAS MD October 01, 2024 10:01
[2024-10-01] MEDS: PoTASSium chloRIDE 20MEQ ER 20 MEQ ERTAB PO ONE (10:08)
[2024-10-01] MEDS ORDERED: MAGNESIUM 2GM PREMIX 50ML 50 ML IV SCH (10:30)
--- NOTE | 2024-10-01 11:19 | NUR ---
DCP: HOME Pt currently lives in his home with his mother and 2 nieces. Pt denies any insecurities with food, nursing home, and/or utilities. Pt does not have any home health or provider services. Pt is able to complete ADLs independently. PCP is Dr. Juan Valles and uses [facility] for any RX needs. Pt would like to DC home and friend Ana Maria Johnson [phone] can assist with transportation. Addendum: 10/01/24 at 1123 by CONCHIS DOAN SS Amended: Links added.
[2024-10-01 12:00] LABS: HEMATOCRIT 28.5 % (42-54)
--- NOTE | 2024-10-01 16:02 | NUR ---
DC PLAN AAA ON 09/30 2 UNITS OF PRBC. RECHECK AT 12, 18. Addendum: 10/01/24 at 1607 by JES CHRISTIANSEN RN CM Amended: Links added.
--- NOTE | 2024-10-01 16:43 | NUR ---
CARDIOLOGY SIGNED OFF DR CASILLAS WAS MADE AWARE OF CARDIOLOGY ([facility] / DR SOUZA) SIGNING OFF AND CLEARING PATIENT FOR DISCHARGE FROM THEIR STANDPOINT. PENDING / AWAITING FURTHER ORDERS FROM . Addendum: 10/01/24 at 1649 by FILIBERTO LA RN RN 1647 PM RECEIVED TELEPHONE ORDERS FROM DR CASILLAS TO DOWNGRADE PATIENT TO MED-SURG W/ TELEMETRY.
--- NOTE | 2024-10-01 19:33 | PN ---
[facility] PROGRESS NOTE Date Patient Seen: October 01, 2024 Time of Visit: 0930 Supervising Physician: Duran Mcnally MD Primary Care Physician: Dr. Juan Hadley Outpatient Specialists: [ ] Inpatient Consults: [ ] PROBLEM LIST: Syncope, POA Hypotensive, POA Saccular infrarenal AAA w/ Mural thrombus s/p EVAAR 09/30/24 post procedure acute blood loss anemia Severe ICA stenosis s/p TCAR and shockwave vascular lithotripsy on 08/13/2024 Vascular calcifications involving the origins of the celiac trunk, SMA and renal arteries without evidence of severe stenosis, per CT 09/29/2024 Extensive vascular calcifications throughout the iliac and femoral arteries, per CT 09/29/2024 Bilateral basilar dense atelectasis, per CT on 09/29/2024 Cardiomegaly 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 Dressing to bilateral femoral site with no increased swelling breathing or bruising. He is hemodynamically stable with blood pressure 121/57 heart rate in the 70s respiratory rate of 12 saturating 92% on room air and afebrile. Urine output 2.1 L in the last 24 hours. CBC shows normal white count, H&H is 8.6/26.9 appears to be stable. He did receive 2 units of PRBCs post procedure. H&H is stabilized now. Chemistry magnesium is 1.50 sodium 134 chloride 100. We will continue to follow cardiology recommendations. Okay to downgrade to PCCU if cardiology in agreement. REVIEW OF SYSTEMS: General: No malaise or fever. Neurological: No fainting episodes or seizures. HEENT: No nasal congestion or nasal secretion. Respiratory: No cough, shortness of breath, or wheezing Cardiac: No chest pain or palpitations. Gastrointestinal: No vomiting or diarrhea. Genitourinary: No dysuria hematuria. Skin: No rashes or lesions. Hematological: No bruises or bleeding. Musculoskeletal: No joint pains or arthralgias. Psychiatric: No depression or panic attacks. PHYSICAL EXAM: GENERAL: Alert, weak, awake oriented x 3 HEENT: EOMI, Sclera non icteric, moist mucosa NECK: Supple, no JVD, trachea midline LUNGS: Clear breath sounds bilaterally. No wheezes HEART: Regular rate and rhythm. Normal S1 and S2, without murmurs ABD: Abdomen soft, nontender. Bowel sounds present EXT: No clubbing cyanosis or edema NEURO: awake alert and oriented, no focal weakness. Vital Signs (last 8hr) Date Time Temp Pulse Resp B/P (MAP) Pulse Ox O2 Delivery O2 Flow Rate FiO2 10/01/24 17:00 91 15 132/108 93 Room Air 10/01/24 16:00 98.6 81 18 120/50 96 Room Air 10/01/24 15:15 92 Room Air* 0 21 10/01/24 15:00 88 17 127/46 92 Room Air 10/01/24 14:00 79 12 121/57 92 Room Air 10/01/24 13:00 83 12 133/59 92 Room Air 10/01/24 12:00 83 14 113/48 96 Room Air 10/01/24 11:18 97 Room Air* 0 21 LABS: Hematology Labs: Test 10/01/24 17:40 10/01/24 04:54 09/30/24 13:14 Range/Units Hemoglobin 8.9 L 14.0-18.0 g/dL Hematocrit 28.0 L 42-54 % White Blood Count 7.2 4.8-10.8 K/uL Red Blood Count 3.32 L 4.50-6.20 MIL/uL Mean Corpuscular Volume 81.0 79-99 fL Mean Corpuscular Hemoglobin 25.9 L 27.0-33.0 pg Mean Corpuscular Hemoglobin Concent 32.0 32.0-36.0 g/dL Red Cell Distribution Width 17.5 H 11.0-15.5 % Platelet Count 168 130-400 K/uL Mean Platelet Volume 9.4 7.5-10.5 fL Immature Granulocyte % (Auto) 0.7 0-1 % Neutrophils (%) (Auto) 83.3 H 40.0-77.0 % Lymphocytes (%) (Auto) 7.1 L 21.0-51.0 % Monocytes (%) (Auto) 7.8 3.0-13.0 % Eosinophils (%) (Auto) 0.8 0.0-8.0 % Basophils (%) (Auto) 0.3 0.0-5.0 % Neutrophils # (Auto) 6.0 1.8-7.7 K/uL Lymphocytes # (Auto) 0.5 L 1.0-4.8 K/uL Monocytes # (Auto) 0.6 0.1-1.0 K/uL Eosinophils # (Auto) 0.06 0.00-0.70 K/uL Basophils # (Auto) 0.02 0.00-0.20 K/uL Absolute Immature Granulocyte (auto 0.05 0-1 K/uL Nucleated Red Blood Cells 0.0 0.0-0.19 % Segmented Neutrophils % 4 L 40-70 % Band Neutrophils % 2 0-2 % Lymphocytes % (Manual) 92 H 22-44 % Monocytes % (Manual) 2 2-9 % Differential Comment MANUAL DIFFERENTIAL White Cell Morphology Comment CONSISTENT W/DIFF Platelet Morphology Comment ADEQUATE Red Blood Cell Morphology NORMAL Chemistry Labs: Test 10/01/24 07:12 10/01/24 04:54 09/30/24 04:15 09/29/24 21:29 Range/Units Magnesium Level 1.50 #L 1.80-2.40 mg/dL Sodium Level 134 L 136-145 mmol/L Potassium Level 3.5 3.5-5.1 mmol/L Chloride Level 100 L 101-111 mmol/L Carbon Dioxide Level 26 21-32 mmol/L Blood Urea Nitrogen 10 7-18 mg/dL Creatinine 0.6 0.5-1.3 mg/dL Glomerular Filtration Rate Calc 100 >90 mL/min Random Glucose 105 70-105 mg/dL Total Calcium 7.2 L 8.5-10.1 mg/dL Total Bilirubin 0.5 # 0.2-1.0 mg/dL Aspartate Amino Transf (AST/SGOT) 13 10-37 U/L Alanine Aminotransferase (ALT/SGPT) 14 12-78 U/L Alkaline Phosphatase 53 50-136 U/L Total Protein 5.4 L 6.0-8.3 g/dL Albumin 2.7 L 3.5-5.0 g/dL Phosphorus Level 3.5 2.5-4.9 mg/dL Thyroid Stimulating Hormone (TSH) 2.12 0.36-3.74 uIU/mL Troponin I High Sensitivity 42 4-75 ng/L B-Type Natriuretic Peptide 24 0-100 pg/mL Coagulation Labs: Test 09/30/24 10:35 09/30/24 04:15 Range/Units Activated Clotting Time 377 H 100-180 SEC Prothrombin Time 10.7 9.6-11.6 SEC Prothromb Time International Ratio 1.01 0.85-1.15 Activated Partial Thromboplast Time 28.0 26.3-35.5 SEC DIAGNOSTICS / RADIOLOGY RESULTS: [ ] PLAN continue to follow cardiology recs , serial HH NEURO: Minimize central acting medications as possible. Fall Precautions. Well lighted room through the day and minimize interruptions through the night to prevent acute delirium. PULMONARY: Supplemental 02 as needed Titrate Fio2 to keep Spo2 > or = 90% DuoNeb�s and CPT as needed IS hourly while awake for pulmonary hygiene Out of bed to chair as tolerated VAP Bundle CARDIOVASCULAR: Follow hemodynamics. Titrate vasopressor to keep MAP >65 or systolic blood pressure >95mmHg LINES: PIV's GI & NUTRITION: Continue nutritional support Aspirations precautions Prokinetic agents and laxatives as needed KIDNEYS & ELECTROLYTES: Strict monitoring of intake and output Daily weights Avoid nephrotoxic agents Monitor electrolytes and replace as needed Goal urine output of 30mL/hr or 0.5mL/kg/hr Urine output: [ ] Fluid Balance: [ ] ENDOCRINE: Maintain blood glucose between 100-180 at all times. Insulin sliding scale for blood glucose management INFECTIOUS DISEASE: Trend temperature. Jett-culture if febrile. Micro: [ ] Antibiotics: [ ] HEMATOLOGY & COAGULATION: Monitor H&H. Keep Hgb > 7 Transfuse 1 unit of PRBC for Hgb < 7 Transfuse 1 pack of platelets of platelets < 20, 000 Watch for any signs and symptoms of bleeding SKIN: Pressure ulcer prevention per facility protocol Rehab: PT/OT Prophylaxis: GI: Famotidine DVT: SCD Code Status: Full Resuscitation Disposition: ICU Other: I personally spent 35 minutes of critical care time in treatment of this patient. This includes patient management, time at bedside, time reviewing tests, labs, appropriate images and studies, documentation, and patient care coordination. This time excludes separately billable procedures. Case was discussed and seen with my supervising physician. The above plan was formulated and agreed upon. ATTESTATION BY PHYSICIAN I attest that I reviewed and discussed the case with the Physician Emergency Department Physician as well as agree with the Physician Emergency Department Physician's findings, plans of care, and documentation above. Duran Verma MD, NELLY J ARNP October 01, 2024 19:33
[2024-10-01] MEDS: atorVAStatin 40 MG TABLET PO SCH (20:35)
--- NOTE | 2024-10-01 20:45 | PN ---
SUBJECTIVE: A 74-year-old gentleman, has an abdominal aortic aneurysm, referred for endovascular repair. I have reviewed the films and discussed the case with Dr. Chu. We both agree the endovascular repair is indicated and we have recommended it. The patient understands the indications for surgery as well as the potential complications of the operation including but not limited to postoperative bleeding, infection, stroke, and/or mesenteric ischemia and ultimately and wishes to proceed. TID: [id number] RECEIPT: [id number]
[2024-10-01] MEDS ORDERED: NON-FORMULARY MEDICATION 1 EACH (Zolpidem Tartrate (Ambien) 10 MG) PO SCH (21:00)
[2024-10-02] VITALS (8 sets, daily range): BP systolic 116–144; BP diastolic 52–71; PULSE 64–87; RESP 12–19; TEMP 98.2–98.5; O2SAT 96–97
[2024-10-02 00:38] LABS: HEMATOCRIT 26.4 % (42-54)
[2024-10-02 05:16] LABS: HEMATOCRIT 25.1 % (42-54); MEAN CORPUSCULAR HEMOGLOBIN 25.9 pg (27.0-33.0); MEAN CORPUSCULAR HGB CONC 32.3 g/dL (32.0-36.0); MEAN CORPUSCULAR VOLUME 80.2 fL (79-99); RED BLOOD CELL COUNT(AUTO) 3.13 MIL/uL (4.50-6.20); RED CELL DISTRIBUTION WIDTH 17.9 % (11.0-15.5); WHITE BLOOD COUNT (AUTO) 8.3 K/uL (4.8-10.8)
[2024-10-02 05:31] LABS: ALBUMIN 2.7 g/dL (3.5-5.0); BILIRUBIN,TOTAL 0.4 mg/dL (0.2-1.0); CREATININE 0.6 mg/dL (0.5-1.3); MAGNESIUM 1.8 mg/dL (1.80-2.40); POTASSIUM 3.4 mmol/L (3.5-5.1); TOTAL PROTEIN, SERUM 5.6 g/dL (6.0-8.3)
--- NOTE | 2024-10-02 06:25 | NUR ---
PT STABLE THOR
--- NOTE | 2024-10-02 06:26 | NUR ---
PT STABLE THROUGH OUT THE NIGHT. HBG STAL[facility]. NO ACUTE EVENTS.
[2024-10-02] MEDS: ERGOCALCIFEROL (VITAMIN D2) 50,000 UNIT CAPSULE PO SCH (08:21)
[2024-10-02] MEDS: OXYmetazoline HCL SPRAY 100 SPRAYS/15 ML BOTTLE EN SCH (08:23)
--- NOTE | 2024-10-02 08:31 | PN ---
[facility] PROGRESS NOTE Date Patient Seen: October 02, 2024 Time of Visit: 08:30 Supervising Physician: Dr. Neeraj Deleon MD Primary Care Physician: Dr. Juan Hadley Outpatient Specialists: [ ] Inpatient Consults: [ ] PROBLEM LIST: Nosebleed Syncope, POA Hypotensive, POA Saccular infrarenal AAA w/ Mural thrombus s/p EVAAR 09/30/24 post procedure acute blood loss anemia Severe ICA stenosis s/p TCAR and shockwave vascular lithotripsy on 08/13/2024 Vascular calcifications involving the origins of the celiac trunk, SMA and renal arteries without evidence of severe stenosis, per CT 09/29/2024 Extensive vascular calcifications throughout the iliac and femoral arteries, per CT 09/29/2024 Bilateral basilar dense atelectasis, per CT on 09/29/2024 Cardiomegaly 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 Sitting up in recliner chair. As per RN had a nosebleed this morning. Still small amount of bleeding to left nostril. He has been given oxymetazoline. Bleeding seems to be controlled we will add ice pack and instructed patient to applied pressure. Bleeding we will have to be well-controlled before discharge. Otherwise CBC unremarkable H&H is stable similar to yesterday 8.06/22.1. Chemistries sodium decreased to 128 potassium 3.4 chloride of 95 total calcium of 7.8 added sodium chloride 1000 mg b.i.d.. No new imaging today. REVIEW OF SYSTEMS: General: No malaise or fever. Neurological: No fainting episodes or seizures. HEENT: + nosebleed. Respiratory: No cough, shortness of breath, or wheezing Cardiac: No chest pain or palpitations. Gastrointestinal: No vomiting or diarrhea. Genitourinary: No dysuria hematuria. Skin: No rashes or lesions. Hematological: No bruises or bleeding. Musculoskeletal: No joint pains or arthralgias. Psychiatric: No depression or panic attacks. PHYSICAL EXAM: GENERAL: Alert, weak, awake oriented x 3 HEENT: EOMI, Sclera non icteric, moist mucosa left nostril with small amount of bleeding. NECK: Supple, no JVD, trachea midline LUNGS: Clear breath sounds bilaterally. No wheezes HEART: Regular rate and rhythm. Normal S1 and S2, without murmurs ABD: Abdomen soft, nontender. Bowel sounds present EXT: No clubbing cyanosis or edema NEURO: awake alert and oriented, no focal weakness. Vital Signs (last 8hr) Date Time Temp Pulse Resp B/P (MAP) Pulse Ox O2 Delivery O2 Flow Rate FiO2 10/02/24 07:11 97 Room Air* 0 21 10/02/24 07:00 98.4 68 19 137/71 97 Room Air 21 10/02/24 06:46 64 18 N/A Room Air 21 10/02/24 04:00 98.2 68 13 116/62 95 10/02/24 01:14 76 16 120/53 96 10/02/24 00:59 77 16 122/58 95 LABS: Hematology Labs: Test 10/02/24 04:58 10/01/24 04:54 09/30/24 13:14 Range/Units White Blood Count 8.3 4.8-10.8 K/uL Red Blood Count 3.13 L 4.50-6.20 MIL/uL Hemoglobin 8.1 L 14.0-18.0 g/dL Hematocrit 25.1 L 42-54 % Mean Corpuscular Volume 80.2 79-99 fL Mean Corpuscular Hemoglobin 25.9 L 27.0-33.0 pg Mean Corpuscular Hemoglobin Concent 32.3 32.0-36.0 g/dL Red Cell Distribution Width 17.9 H 11.0-15.5 % Platelet Count 146 130-400 K/uL Mean Platelet Volume 9.5 7.5-10.5 fL Nucleated Red Blood Cells 0.0 0.0-0.19 % Immature Granulocyte % (Auto) 0.7 0-1 % Neutrophils (%) (Auto) 83.3 H 40.0-77.0 % Lymphocytes (%) (Auto) 7.1 L 21.0-51.0 % Monocytes (%) (Auto) 7.8 3.0-13.0 % Eosinophils (%) (Auto) 0.8 0.0-8.0 % Basophils (%) (Auto) 0.3 0.0-5.0 % Neutrophils # (Auto) 6.0 1.8-7.7 K/uL Lymphocytes # (Auto) 0.5 L 1.0-4.8 K/uL Monocytes # (Auto) 0.6 0.1-1.0 K/uL Eosinophils # (Auto) 0.06 0.00-0.70 K/uL Basophils # (Auto) 0.02 0.00-0.20 K/uL Absolute Immature Granulocyte (auto 0.05 0-1 K/uL Segmented Neutrophils % 4 L 40-70 % Band Neutrophils % 2 0-2 % Lymphocytes % (Manual) 92 H 22-44 % Monocytes % (Manual) 2 2-9 % Differential Comment MANUAL DIFFERENTIAL White Cell Morphology Comment CONSISTENT W/DIFF Platelet Morphology Comment ADEQUATE Red Blood Cell Morphology NORMAL Chemistry Labs: Test 10/02/24 04:58 Range/Units Sodium Level 128 L 136-145 mmol/L Potassium Level 3.4 L 3.5-5.1 mmol/L Chloride Level 95 L 101-111 mmol/L Carbon Dioxide Level 30 21-32 mmol/L Blood Urea Nitrogen 9 7-18 mg/dL Creatinine 0.6 0.5-1.3 mg/dL Glomerular Filtration Rate Calc 100 >90 mL/min Random Glucose 104 70-105 mg/dL Total Calcium 7.8 L 8.5-10.1 mg/dL Magnesium Level 1.80 1.80-2.40 mg/dL Total Bilirubin 0.4 0.2-1.0 mg/dL Aspartate Amino Transf (AST/SGOT) 17 10-37 U/L Alanine Aminotransferase (ALT/SGPT) 12 12-78 U/L Alkaline Phosphatase 52 50-136 U/L Total Protein 5.6 L 6.0-8.3 g/dL Albumin 2.7 L 3.5-5.0 g/dL Coagulation Labs: Test 09/30/24 10:35 Range/Units Activated Clotting Time 377 H 100-180 SEC DIAGNOSTICS / RADIOLOGY RESULTS: [ ] PLAN Patient had nosebleed after strong force blowing his nose. Oxymetazoline to left nostril Apply pressure to nose Ice pack Disposition per primary team. NEURO: Minimize central acting medications as possible. Maintain fall precautions, adequate lighting during the day PULMONARY: Supplemental 02 as needed. Maintain aspiration precautions at all times CARDIOVASCULAR: Follow hemodynamics. Vital signs per facility protocol GI & NUTRITION: Continue with nutritional support. Continue stool softeners and laxatives as needed. KIDNEYS & ELECTROLYTES: Strict monitoring of intake, output and overall fluid balance. Avoid nephrotoxic medications to the extent possible. Medications to be dosed according to renal function. Monitor electrolytes and replace as needed ENDOCRINE: Maintain blood glucose between 100-180 at all times. Hypoglycemia protocol in place INFECTIOUS DISEASE: Trend temperature, WBC and procalcitonin level Follow cultures, deescalate antibiotics as soon as possible. Panculture if new onset fever ONCOLOGY/HEMATOLOGY/COAGULATION: Monitor for s/s of bleeding Monitor hemoglobin, coagulation studies as needed SKIN: Pressure ulcer prevention per facility protocol Specialty mattress ORTHO/REHAB: Continue PT/OT Prophylaxis: Continue GI and DVT prophylaxis Code Status: Full Resuscitation Disposition: TBD Other: Total patient care time exceeds 35 minutes excluding all procedures. ATTESTATION BY PHYSICIAN I reviewed the documentation, medical decision making, and treatment plan as noted by the mid-level provider above. I agree with the findings and plan of care. Neeraj Deleon MD, NELLY J ARNP October 02, 2024 08:31
[2024-10-02] MEDS: SODIUM CHLORIDE 1,000 MG TAB PO SCH (09:03)
--- NOTE | 2024-10-02 09:31 | PN ---
PROBLEM LIST: * Near syncope in the setting of hypotension and bradycardia, evaluated in [facility] and transferred to [facility] for additional management. * History of saccular infrarenal abdominal aortic aneurysm, measuring 5.3 cm by CAT scan with findings of critical bilateral iliac artery stenosis with a heavy calcium burden, CAT scan date 07/2024. * Status post complex endoluminal graft placement for an inferior abdominal aneurysm with concomitant balloon angioplasty and shockwave lithotripsy of right and left common iliac arteries. * History of severe right carotid artery stenosis, greater than 90% with right TCAR with concomitant shockwave lithotripsy, 08/13/2024. * History of nonobstructive coronary artery disease by cardiac catheterization in 2023. * Status post fall due to hypotension with right flank hematoma by CAT scan, 09/2024 with findings of mild upper mediastinal lymphadenopathy at [facility]. * Interstitial infiltrates throughout both lungs with superimposed pulmonary fibrotic changes and emphysematous changes by CT scan, 09/2023. * Anemia, likely multifactorial. * Electrolyte abnormalities, being corrected with hyponatremia. * Hypertension, however, with adequate blood pressure. * Hyperlipoproteinemia. * History of heavy alcohol and tobacco use, stopped in 2011. * History of statin intolerance, currently tolerating statins. * Bradycardia with conduction system disease, being monitored. * Preserved LV systolic function with no significant valvular pathology by echocardiography. This patient has been evaluated at [facility] and was noted to have significant anemia and bradycardia. He had had a near-syncopal episode, which is felt to be likely due to his marginal pressure by regarding in the setting of medication administration. The emergency room physician called me and we agreed given the fact that the patient was scheduled to have endoluminal graft placement that he come in to [facility] and he was transferred by ambulance. The patient has undergone complex procedure for endoluminal graft placement with concomitant bilateral common iliac artery angioplasty and shockwave lithotripsy with good angiographic results. Postoperatively, the patient has been doing fairly well. He is not having any active complaints now. On examination, the patient's vital signs are stable. His blood pressure is 115-120 systolic range. He is saturating at 95% to 96% on room air. The patient's respiratory rate is 13-18 per minute. The patient's exam reveals a soft abdomen, which is nonpulsatile. The patient has ecchymosis in the right and left groin, but he does have palpable pulses distally. There is no evidence of calf or thigh tenderness. The Homans sign is negative bilaterally. The patient's sodium is still low at 128. His potassium is 3.4, to be corrected per protocol. The chloride is 95, the CO2 is 30. His BUN is 9 and his creatinine is 0.6 with a GFR of 100. The patient's total calcium is low at 7.8; however, his albumin is low at 2.7, consistent with protein malnutrition with concomitant hypoalbuminemia. The patient's liver enzymes are normal. The white count is 8.3. The H and H have remained low at 8.1 and 25.1 respectively. The platelet count is currently 146,000. From the cardiac standpoint, the patient appears to be stable and doing well. I think that it would be prudent to have the patient placed on iron sulfate, as well as clopidogrel. I will discontinue his aspirin given his anemia. I will continue his atorvastatin and I will reduce the metoprolol dose to 12.5 daily at bedtime instead of b.i.d. I will also discontinue amlodipine and monitor the patient's status. It is clear that the patient will require close monitoring as an outpatient once he has been dismissed by the primary care team. He will require repeat laboratory assessment in 48 hours. He will also require stool guaiac testing. The patient will benefit from pulmonary assessment, and we will communicate his hospitalization findings with his primary care physician. We would like to thank you for allowing us to participate in the care of this patient. TID: [id number] RECEIPT: [id number]
[2024-10-02] MEDS ORDERED: FERS325 PO (09:53)
[2024-10-02] MEDS ORDERED: METO25TA6 PO (09:53)
[2024-10-02] MEDS: PoTASSium chloRIDE 20MEQ ER 20 MEQ ERTAB PO ONE (09:59)
--- NOTE | 2024-10-02 10:30 | NUR ---
DISCHARGE EDUCATION EXPLAINED & PROVIDED IN WRITING TO PATIENT AT THIS TIME ALONG W/ PRESCRIPTION FOR NEW MEDICATIONS & LAB TO BE PERFORMED W/ PCP. COPIES MADE OF NEW PRESCRIPTIONS & LABS TO BE DRAWN & PLACED ON CHART. BOTH PIV & TELE REMOVED AT THIS TIME.
--- NOTE | 2024-10-02 11:07 | NUR ---
DISCHARGED HOME VIA WHEELCHAIR, AAOX3, IN STABLE CONDITION. NO C/O PAIN VERBALIZED. ACCOMPANIED BY FRIEND / PRIVATE VEHICLE.
--- NOTE | 2024-10-02 13:38 | DS ---
Discharge Summary Hospital Course Summary: Mr. Smalls is a 74-year-old male was transferred from [place] and direct admitted to [facility] by Dr. Chu, Cardiology with the diagnosis of syncope and AAA. The plan for the transfer is AAA repair at [facility] where the Cardiothoracic surgeon and his life tester outboard motors are located. The patient has a history of HTN, hyperlipoproteinemia, infrarenal abdominal aortic aneurysm measuring 5.3 cm (AAA dx since [address] Johnson f/u on it, per patient), CAD s/p cardiac stents, normal LV systolic function by cardiac catheterization on January 2024, history of heavy alcoholism and tobacco use (stopped in 2011), history of PVD, severe right internal carotid artery stenosis (90% or greater stenosis) as per neck CT on May 2024. The patient underwent right carotid stent angiography and right subclavian artery exposure and closure procedure (right TCA ER and shockwave vascular lithotripsy) on 08/13/2024 for stenosis. Per [facility] chart review: The patient was taken to [facility] ER by EMS for evaluation of accidental fall with syncope that happened prior to arrival. The patient reported he was sitting down at a local restaurant when he got up and reported falling to the ground. The patient was assisted to the ground and denied any complaints of headache or neck trauma. The patient reported he felt dizzy after falling down. Patient was noted to have a low blood pressure by EMS and was given 500 mL bolus of saline. The patient denied abdominal pain and chest pain on arrival to ED patient was reported to be unresponsive for a few seconds as per EMS. The patient reported right elbow pain s/p the fall. CTs done at [facility]: CTA abdomen and pelvis with contrast: 1. Saccular infrarenal abdominal aortic aneurysm measuring up to 5.1 x 5.1 cm in cross-sectional diameter and about 4.8 cm in length. There is prominent mural thrombus noted. No leakage or rupture is identified. 2. The thoracic and abdominal aorta is tortuous and calcified. 3. Vascular calcifications involving the origins of the celiac trunk, SMA and renal arteries without evidence of severe stenosis. 4. Extensive vascular calcifications throughout the iliac and femoral arteries. 5. Bilateral basilar dense atelectasis. 6. Coronary artery disease and cardiomegaly. 7. The left lateral upper abdominal and lower chest wall demonstrates a 7.[address] angio chest: Arthrosclerotic calcification of the thoracic aorta without aneurysmal dilatation or dissection. New 2. Cardiomegaly and CAD. 3. Mild upper mediastinal lymphadenopathy. 4. Extensive interstitial infiltrates throughout both lungs with superimposed pulmonary fibrosis and sensory labetalol emphysema. No dense consult cessation is identified. 5. There is thoracic spondylosis. CT brain without contrast: No acute intracranial abnormalities. Generalized atrophy with chronic periventricular deep white matter ischemic changes. EKG: Sinus rhythm, heart rate 61, prolonged MS interval, probable left atrial enlargement, left BBB. Per chart review the patient was admitted on 08/13/2024 at [facility] s/p right carotid stent angiogram and right subclavian artery exposure and closure procedure [right TCAR and shockwave vascular lithotripsy] today for stenosis. The patient was discharged on 08/15/2024 by the [facility] team. Patient admitted to the medical floor. Patient was taken to metallurgical laboratory assistant September 30, 2024, underwent endovascular repair by Cardiology and Cardiothoracic surgeon. 10/01 patient is seen and examined at bedside, case discussed with the RN, patient is status post endoluminal graft in the abdominal aorta done 09/30/24. After procedure the patient was was blood from the right groin area, patient is status post transfusion of 2 units of PRBC. Hemoglobin today 8.6, hematocrit 26.9. There was no need to start the patient on Levophed drip. The patient is off nitroglycerin drip since earlier this morning. He remains afebrile saturating normal on room air. Denies chest pain, denied shortness a breath, no nausea, no vomiting, no abdominal pain. Patient had minor episode of nosebleed resolved two with a Afrin spray. At the time of my visit alert oriented x3, no chest pain, shortness shortness for breath, no nausea, no vomiting. Patient cleared by Cardiology to be discharged home and follow up as an outpatient. Systems Trainer(s): Cardiology and vascular surgeon Procedure(s): Saccular infrarenal AAA w/ Mural thrombus s/p EVAAR 09/30/24 Assessment/Plan: Final diagnosis Nosebleed Syncope, POA Hypotensive, POA Saccular infrarenal AAA w/ Mural thrombus s/p EVAAR 09/30/24 post procedure acute blood loss anemia Severe ICA stenosis s/p TCAR and shockwave vascular lithotripsy on 08/13/2024 Vascular calcifications involving the origins of the celiac trunk, SMA and renal arteries without evidence of severe stenosis, per CT 09/29/2024 Extensive vascular calcifications throughout the iliac and femoral arteries, per CT 09/29/2024 Bilateral basilar dense atelectasis, per CT on 09/29/2024 Cardiomegaly 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 Arthrosclerotic calcification of the thoracic aorta without aneurysmal dilatation or dissection, per CT 09/29/2024 Mild upper mediastinal lymphadenopathy, per CT 09/29/2024 Anemia of chronic disease, POA Chronic hyponatremia, POA Chronic Bradycardia Hypertension Hyperlipidemia CAD PVD Former heavy alcohol and tobacco use (quit in 2011) Extensive interstitial infiltrates throughout both lungs with superimposed pulmonary fibrosis and sensory labetalol emphysema, per CT 09/29/2024 Discharge Instructions: Patient to follow with Cardiology as an outpatient, to return to the hospital if condition changes, patient agreed and understood the information provided. Home Medications: Active Scripts Ferrous Sulfate (Ferrous Sulfate) 325 Mg (65 Mg Iron) Ectab, 1 TAB PO BID for 30 Days, #60 TAB 1 Refill Prov:KAYDEN CASILLAS MD 10/02/24 Metoprolol Tartrate (Metoprolol Tartrate) 25 Mg Tablet, 12.5 TAB PO bedtime for 30 Days, #30 TAB 1 Refill Prov:KAYDEN CASILLAS MD 10/02/24 Reported Medications Atorvastatin Calcium (Atorvastatin Calcium) 40 Mg Tablet, 1 TAB PO HS for 30 Days, #30 TAB 0 Refills 09/30/24 Zolpidem Tartrate (Ambien) 10 Mg Tablet, 10 MG PO PM, TAB 08/02/24 Zinc Sulfate (Zinc) 50 Mg Zinc (220 Mg) Tablet, 50 MG PO DAILY, TAB 08/02/24 Cholecalciferol (Vitamin D3) 1,250 Mcg (95187 Unit) Cap, 63668 UNITS PO weekly, CAP 08/02/24 Cyanocobalamin (Vitamin B-12) (Vitamin B-12) 1,000 Mcg Tablet, 1000 MCG PO DAILY, TAB 08/02/24 Clopidogrel Bisulfate (Clopidogrel) 75 Mg Tablet, 75 MG PO AM, TAB 08/02/24 Lisinopril (Lisinopril) 20 Mg Tablet, 20 MG PO BID, TAB 08/02/24 Discontinued Reported Medications Aspirin (ASPIRIN 81MG CHEW TAB) 81 Mg Tab.chew, 1 TAB PO DAILY for 30 Days, #30 TAB 0 Refills 09/30/24 Amlodipine Besylate (Amlodipine Besylate) 5 Mg Tablet, 5 MG PO AM, TAB 08/02/24 Time spent arranging discharge: 31-60 minutes KAYDEN CASILLAS MD October 02, 2024 13:38
--- NOTE | 2024-10-04 11:06 | NUR ---
Transitional Phone Call Patient speaks Mongolian and Filipino but easier in Filipino. Patient states "feeling fine, fine but with a little pain." "La cirugia fue un exito." Patient had a few questions about the new medications and medications to discontinue; read and translated to Filipino instructions on discharge documents; verbalized understanding; no further questions. States had nosebleeds; referred to mortar maker; states he already saw his ENT doctor and the capillaries have been cauterized. States he is aware he has an appointment today 10/04/2024 and 10/07/2024 for Stool Guaiac Test and lab work, states is waiting for rain to stop before heading out to PCP today. States aware of the follow up appointment for PCP - Dr. Hadley on 10/09/2024 at 1415. States he is aware of the follow up appointment with cardiology - Dr. Chu 10/17/2024 at 1240. No further questions or concerns.
== END 2024-10-02 11:19 | disposition home or self-care (01) | DRG 269 ==
LOC: 2CH 20:18
PROVIDERS: ADMIT Internal Medicine Sleep Medicine; ATTEND Internal Medicine Sleep Medicine
PROC: 04U03JZ Supplement Abdominal Aorta with Synthetic Substitute, Percutaneous Approach (ICD-10-PCS; principal; 2024-09-30)
PROC: 047D3ZZ Dilation of Left Common Iliac Artery, Percutaneous Approach (ICD-10-PCS; 2024-09-30)
PROC: 047C3ZZ Dilation of Right Common Iliac Artery, Percutaneous Approach (ICD-10-PCS; 2024-09-30)
PROC: 04FD3ZZ Fragmentation of Left Common Iliac Artery, Percutaneous Approach (ICD-10-PCS; 2024-09-30)
PROC: 04FC3ZZ Fragmentation of Right Common Iliac Artery, Percutaneous Approach (ICD-10-PCS; 2024-09-30)
PROC: 04QK3ZZ Repair Right Femoral Artery, Percutaneous Approach (ICD-10-PCS; 2024-09-30)
PROC: 30233N1 Transfusion of Nonautologous Red Blood Cells into Peripheral Vein, Percutaneous Approach (ICD-10-PCS; 2024-09-30)
PROC: B4101ZZ Fluoroscopy of Abdominal Aorta using Low Osmolar Contrast (ICD-10-PCS; 2024-09-30)
DX: I71.43 Infrarenal abdominal aortic aneurysm, without rupture (principal); E87.1 Hypo-osmolality and hyponatremia; J98.11 Atelectasis; E46 Unspecified protein-calorie malnutrition; I74.09 Other arterial embolism and thrombosis of abdominal aorta; D62 Acute posthemorrhagic anemia; I70.0 Atherosclerosis of aorta; I51.3 Intracardiac thrombosis, not elsewhere classified; I95.9 Hypotension, unspecified; R55 Syncope and collapse; D63.8 Anemia in other chronic diseases classified elsewhere; E78.5 Hyperlipidemia, unspecified; E87.6 Hypokalemia; I11.9 Hypertensive heart disease without heart failure; I25.10 Atherosclerotic heart disease of native coronary artery without angina pectoris; I70.209 Unspecified atherosclerosis of native arteries of extremities, unspecified extremity; J43.9 Emphysema, unspecified; J84.10 Pulmonary fibrosis, unspecified; M47.814 Spondylosis without myelopathy or radiculopathy, thoracic region; S50.01XA Contusion of right elbow, initial encounter; Z86.79 Personal history of other diseases of the circulatory system; R00.1 Bradycardia, unspecified; E83.42 Hypomagnesemia; E87.8 Other disorders of electrolyte and fluid balance, not elsewhere classified; I44.0 Atrioventricular block, first degree; I44.7 Left bundle-branch block, unspecified; R04.0 Epistaxis; K59.00 Constipation, unspecified; W18.39XA Other fall on same level, initial encounter; E88.09 Other disorders of plasma-protein metabolism, not elsewhere classified; Z87.891 Personal history of nicotine dependence; Z95.5 Presence of coronary angioplasty implant and graft; Y93.89 Activity, other specified; Y92.89 Other specified places as the place of occurrence of the external cause; Y99.8 Other external cause status; Z68.25 Body mass index [BMI] 25.0-25.9, adult
CPT/HCPCS: 34705; 34713; 36415; 36430; 71045; 80048; 80053; 80305; 81001; 81003; 82435; 82803; 82947; 83605; 83735; 83880; 84100; 84132; 84295; 84443; 84484; 85014; 85018; 85025; 85027; 85347; 85610; 85730; 86850; 86900; 86901; 86923; 87635; 87804; 93005; 93880; 94664; A4344; C1725; C1760; C1769; C1887; C1894; C9764; G0378; J0461; J0690; J1644; J2270; J2371; J2405; J2704; J2710; J3010; J3370; J3475; J3490; P9016; Q9967; Q9965